=== PATIENT | female | born 1970 | race Caucasian/White ===

== ENCOUNTER 2022-03-13 13:55 | Outpatient (CLI) | payer SELFPAY ==
--- NOTE | 2022-03-13 14:25 | XRR_ITS ---
PROCEDURE INFORMATION: Exam: XR Cervical Spine Exam date and time: 03/13/2022 2:37 PM Age: 51 years old Clinical indication: Neck pain and radicular pain (radiculopathy); Cervical region; Additional info: Chronic neck pain w/radiating symptoms TECHNIQUE: Imaging protocol: Radiologic exam of the cervical spine. Views: 2 or 3 views. COMPARISON: No relevant prior studies available. FINDINGS: Bones/joints: Eknz-gl-xkzkwsgv C5-C6 with moderate to severe C6-C7 degenerative disc disease and spondylosis. Soft tissues: Unremarkable. XR/XR cervical spine 3V* [id number] IMPRESSION: Fwng-wa-zlaqfgiw C5-C6 with moderate to severe C6-C7 degenerative disc disease and spondylosis.
== END 2022-03-13 13:56 | disposition home or self-care (01) ==
PROVIDERS: PCP Family Medicine; Visit Provider Chiropractor
DX: M50.323 Other cervical disc degeneration at C6-C7 level (principal); M47.812 Spondylosis without myelopathy or radiculopathy, cervical region
CPT/HCPCS: 72040

== ENCOUNTER 2022-04-10 14:03 | Outpatient (CLI) | payer BC, SELFPAY ==
--- NOTE | 2022-04-10 14:22 | MM_ITS ---
WS: [id number] BILATERAL 3D TOMOSYNTHESIS DIGITAL DIAGNOSTIC MAMMOGRAPHY WITH CAD CLINICAL INFORMATION: LT BREAST LUMP COMPARISON: None. TECHNIQUE: Bilateral CC, MLO, and ML views. FINDINGS: Scattered fibroglandular densities bilaterally. No suspicious parenchymal abnormalities. Breast tissu e similar to previous. Ultrasound LEFT breast described below ULTRASOUND BREAST LEFT TECHNIQUE: Ultrasound left breast focused area of concern. CLINICAL INFORMATION: LT BREAST LUMP COMPARISON: None. FINDINGS: Ultrasound LEFT breast 4 to 7:00 position. Normal underlying parenchymal tissue. No cystic or solid l esions. No suspicious lesions to target for biopsy. Normal-appearing LEFT axillary lymph node. MM/[place] [id number] IMPRESSION: BI-RADS: 2-Benign FOLLOW UP: 1 Year Follow-up Recommend return to annual screening mammography.
== END 2022-04-10 14:04 | disposition home or self-care (01) ==
LOC: RAD 14:04
PROVIDERS: PCP Family Medicine; Visit Provider Family Medicine
DX: N63.25 Unspecified lump in the left breast, overlapping quadrants (principal)
CPT/HCPCS: 76642; 77062

== ENCOUNTER 2022-09-26 09:54 | Outpatient (CLI) | payer BC, MEDICAID, SELFPAY ==
--- NOTE | 2022-09-26 10:38 | XR_ITS ---
WS: [id number] Abdomen series, Flat and upright 09/26/2022 Clinical Data: INFERIOR VENA CAVA FILTER PRESENT Comparison: None. Findings: No free air is seen beneath the diaphragms. No abnormal intra-abdominal masses or calcifica tions are seen. There is a linear 0.3 cm metal fragment overlying the right side of the L3 vertebral body which may be a strut from the inferior vena caval filter. XR/XR abdomen min 2V [id number] Impression: Possible strut from an inferior vena caval filter overlying L3 vertebral body.
== END 2022-09-26 09:55 | disposition home or self-care (01) ==
PROVIDERS: PCP Family Medicine; Visit Provider Family Medicine
DX: Z95.828 Presence of other vascular implants and grafts (principal)
CPT/HCPCS: 74019

== ENCOUNTER 2022-10-31 00:30 | Inpatient (IN) | payer BC, SELFPAY ==
[2022-10-31] VITALS (14 sets, daily range): BP systolic 119–191; BP diastolic 60–94; PULSE 49–87; RESP 14–22; TEMP 37.1; O2SAT 94–100; BMI 35.9
--- NOTE | 2022-10-31 00:46 | ECG_ITS ---
[facility] Test Date: 2022-10-31 Pat Name: Natacha Reyez Department: Room: Gender: Female Customer Program Manager: : 1970 Requested By: Olayinka Gutierrez Order Number: [id number] Nunu MD: Seamus Tate M.D. Measurements Intervals [place] Rate: 55 P: 67 MS: 146 QRS: 62 QRSD: 97 T: 86 QT: 421 QTc: 405 Interpretive Statements SINUS BRADYCARDIA No previous ECG available for comparison Electronically Signed On 10-31-2022 23:31:51 STEAM PLANT RECORDS CLERK by Seamus Tate M.D. [id number]
--- NOTE | 2022-10-31 00:46 | XRR_ITS ---
PROCEDURE INFORMATION: Exam: XR Chest Exam date and time: 10/31/2022 12:55 AM Age: 52 years old Clinical indication: Shortness of breath; Patient HX: C/O chest discomfort with SOB. ; Additional info: Chest pain TECHNIQUE: Imaging protocol: Radiologic exam of the chest. Views: 1 view. COMPARISON: 1. CR XR abdomen min 2V [id number] 2022-09-26 10:52 2. CR XR cervical spine 3V* [id number] 2022-03-13 14:37 FINDINGS: Lungs: Unremarkable. No consolidation. Pleural spaces: Unremarkable. No pleural effusion. No pneumothorax. Heart/Mediastinum: Unremarkable. No cardiomegaly. Bones/joints: Unremarkable. XR/XR chest 1V portable [id number] IMPRESSION: No acute findings.
--- NOTE | 2022-10-31 00:47 | W.ED.CHESTPA ---
Documented by User: BLADE Cruz 10/31/22 02:58 HPI - Chest Pain General: Chief Complaint: Chest Pain Stated Complaint: sob,cough,chest pain Time Seen by Provider: 10/31/22 00:46 History of Present Illness: 52-year-old female comes in today with complaints of cough and congestion for about 1 week. Tonight she started having some chest discomfort after coughing really hard. Patient appears mildly unwell but not toxic. Patient does have a history of hypertension. Patient's previous history also includes a DVT and pulmonary embolism. Patient otherwise takes only medications for her blood pressure and no other routine medicines. Patient appears nontoxic. Patient's previous PE was called secondary to ankle fracture. Patient reports pain with palpation of the chest wall and deep inspiration. Associated symptoms: Reports fever(s); Deny nausea or vomiting Review of Systems General: Reports: 10 or more systems reviewed and unremarkable except in HPI and below Const: Reports: fever(s) and chills ENMT: Reports: nasal discharge; Denies: throat pain Resp: Reports: non-productive cough and pain on inspiration GI: Denies: nausea, vomiting, diarrhea or constipation : Denies: difficulty voiding Musc: Reports: other (Anterior chest wall pain) Physical Exam Const: COMMON NORMALS: alert HENMT: COMMON NORMALS: normocephalic HEAD & SCALP: normocephalic THROAT: posterior oropharynx normal Neck/C-Spine: COMMON NORMALS: full ROM Chest: CHEST: Yes tenderness (Anterior chest wall) Resp: EFFORT & INSPECTION: Yes able to speak in complete sentences AUSCULTATION: wheezes Cardio: COMMON NORMALS: regular rate and regular rhythm RATE: regular rate RHYTHM: regular rhythm GI: COMMON NORMALS: Soft to palpation AUSCULTATION: Yes normoactive bowel sounds PALPATION: Yes Soft to palpation and No Tenderness to palpation present (GI) Back/Pelvis: COMMON NORMALS: thoracic and lumbar spine normal to inspection Extremity: COMMON NORMALS: no pedal edema Neuro: SENSORIUM/ORIENTATION: Yes alert Skin: COMMON NORMALS: turgor normal GENERAL SKIN EXAM: turgor normal Course Vital Signs: Vital signs: Vital Signs Pulse Rate 72 10/31/22 00:40 Respiratory Rate 18 10/31/22 00:40 Blood Pressure 191/94 10/31/22 00:40 Pulse Oximetry 98 10/31/22 00:40 Oxygen Delivery Me thod 10/31/22 00:40 MDM - Chest Pain Medical Decision Making Patient comes in tonight for complaints of cough and congestion and some chest discomfort starting tonight. Patient reports illness x1 week. Patient reported occasional chills and fever. Patient appears mildly unwell but not toxic. Lungs have some wheezing throughout. Abdomen soft nontender. No edema is noted in the extremities. Skin is warm and dry. Vital signs are normal except for elevated blood pressure. Differential diagnosis includes but not limited to pneumonia, costochondritis, bronchitis, ACS. Lab Data 10/31/22 00:47 10/31/22 00:47 Radiology Impressions Chest X-Ray 10/31/22 00:46 IMPRESSION: No acute findings. Chest CTA 10/31/22 01:28 IMPRESSION: 1. Masslike enlargement of the left kidney, question pyelonephritis, hydronephrosis, or mass. 2. No pulmonary emboli. 3. Mild pulmonary artery enlargement. Mild left cardiac ventricular enlargement. COMMENTS: Consistent with the [place] [employer]'s Incidental Findings Committee white paper (J Am Joesph Radiol 2018): Any incidental renal lesion less than 1 cm or classified as too small to characterize, or any incidental cystic renal lesion characterized as simple-appearing, is likely benign. No follow-up imaging is recommended for these lesions per consensus recommendations based on imaging criteria. Laboratory Results WBC 9.7 10^3/uL (4.0-10.0) 10/31/22 00:47 RBC 4.15 10^6/uL (4.1-5.3) 10/31/22 00:47 Hgb 12.1 g/dL (11.5-15.3) 10/31/22 00:47 Hct 37.8 % (37.0-47.0) 10/31/22 00:47 MCV 91.1 fl (81-99) 10/31/22 00:47 MCH 29.2 pg (28.0-34.0) 10/31/22 00:47 MCHC 32.0 g/dL (30.0-36.0) 10/31/22 00:47 RDW 12.4 % (12.1-15.1) 10/31/22 00:47 Plt Count 350 10^3/cmm (130-400) 10/31/22 00:47 MPV 9.5 fL (7.4-10.4) 10/31/22 00:47 Neut % (Auto) 62.6 % 10/31/22 00:47 Lymph % (Auto) 30.9 % 10/31/22 00:47 Wolfe % (Auto) 4.6 % 10/31/22 00:47 Eos % (Auto) 1.1 % 10/31/22 00:47 Baso % (Auto) 0.5 % 10/31/22 00:47 Neut # (Auto) 6.04 10^3/uL (1.8-7.7) 10/31/22 00:47 Lymph # (Auto) 3.0 10^3/uL (0.8-4.8) 10/31/22 00:47 Wolfe # (Auto) 0.4 10^3/uL (0.2-0.9) 10/31/22 00:47 Eos # (Auto) 0.1 10^3/uL (0.0-0.8) 10/31/22 00:47 Baso # (Auto) 0.1 10^3/uL (0.0-0.1) 10/31/22 00:47 Nucleated RBC % (auto) 0 % 10/31/22 00:47 Nucleated RBCs # 0.0 /100WBC 10/31/22 00:47 D-Dimer 0.63 ug/mIFEU (0-0.59) H 10/31/22 00:47 Sodium 138 mmol/L (136-145) 10/31/22 00:47 Potassium 4.0 mmol/L (3.5-5.1) 10/31/22 00:47 Chloride 102 mmol/L (98-107) 10/31/22 00:47 Carbon Dioxide 24 mmol/L (22-29) 10/31/22 00:47 Anion Gap 16.0 (5-19) 10/31/22 00:47 BUN 19 mg/dL (6-20) 10/31/22 00:47 Creatinine 0.8 mg/dL (0.5-0.9) 10/31/22 00:47 GFR Calculation 75.0 mL/min (90-130) L 10/31/22 00:47 Glucose 111 mg/dL (65-115) 10/31/22 00:47 Calculated Osmolality 289 mOsm/kg (285-295) 10/31/22 00:47 Calcium 9.2 mg/dL (8.5-10.5) 10/31/22 00:47 Total Bilirubin 0.2 mg/dL (0.15-1.2) 10/31/22 00:47 AST 13 U/L (0-32) 10/31/22 00:47 ALT 13 U/L (0-33) 10/31/22 00:47 Alkaline Phosphatase 49 U/L (35-105) 10/31/22 00:47 Troponin T Baseline 27 ng/L (0-10) H 10/31/22 00:47 Troponin T 120 Minute 74.54 ng/L (0-10) H 10/31/22 02:51 Delta Troponin T 47.54 ABS# (0-10) H* 10/31/22 02:51 NT-Pro-B Natriuret Pep 220 pg/mL (0-125) H 10/31/22 00:47 Total Protein 6.8 g/dL (6.6-8.7) 10/31/22 00:47 Albumin 4.2 g/dL (3.5-5.2) 10/31/22 00:47 Globulin 2.6 g/dL (1.3-4.6) 10/31/22 00:47 Lipase 29 U/L (13-60) 10/31/22 00:47 Influenza Type A Ag negative (Negative) 10/31/22 00:54 Influenza Type B Ag negative (Negative) 10/31/22 00:54 SARS-CoV-2 Ag (Rapid) negative (Negative) 10/31/22 00:54 Discharge Plan Discharge Patient Disposition: Admitted As Inpatient Clinical Impression: Non-ST elevation OK (NSTEMI), Bronchitis Condition: Stable Referrals: Marisa Barber DO [Primary Care Provider] - Coding Level of Care Code ED In Flight Technician for Chg Fwd Documented by User: Marco Fleming MD 10/31/22 04:46 HPI - Chest Pain General: Chief Complaint: Chest Pain Stated Complaint: sob,cough,chest pain Time Seen by Provider: 10/31/22 00:46 Course Vital Signs: Vital signs: Vital Signs Pulse Rate 72 10/31/22 00:40 Respiratory Rate 18 10/31/22 00:40 Blood Pressure 191/94 10/31/22 00:40 Pulse Oximetry 98 10/31/22 00:40 Oxygen Delivery Me thod 10/31/22 00:40 MDM - Chest Pain Medical Decision Making Patient comes in tonight for complaints of cough and congestion and some chest discomfort starting tonight. Patient reports illness x1 week. Patient reported occasional chills and fever. Patient appears mildly unwell but not toxic. Lungs have some wheezing throughout. Abdomen soft nontender. No edema is noted in the extremities. Skin is warm and dry. Vital signs are normal except for elevated blood pressure. Differential diagnosis includes but not limited to pneumonia, costochondritis, bronchitis, ACS. Patient presents here with cough congestion she is also had a central chest pain today her 2-hour troponin was elevated consistent with NSTEMI she is currently pain-free EKGs are normal I spoke to the hospitalist and will admit at this time. Lab Data 10/31/22 00:47 10/31/22 00:47 Radiology Impressions Chest X-Ray 10/31/22 00:46 IMPRESSION: No acute findings. Chest CTA 10/31/22 01:28 IMPRESSION: 1. Masslike enlargement of the left kidney, question pyelonephritis, hydronephrosis, or mass. 2. No pulmonary emboli. 3. Mild pulmonary artery enlargement. Mild left cardiac ventricular enlargement. COMMENTS: Consistent with the [place] [employer]'s Incidental Findings Committee white paper (J Am Joesph Radiol 2018): Any incidental renal lesion less than 1 cm or classified as too small to characterize, or any incidental cystic renal lesion characterized as simple-appearing, is likely benign. No follow-up imaging is recommended for these lesions per consensus recommendations based on imaging criteria. Laboratory Results WBC 9.7 10^3/uL (4.0-10.0) 10/31/22 00:47 RBC 4.15 10^6/uL (4.1-5.3) 10/31/22 00:47 Hgb 12.1 g/dL (11.5-15.3) 10/31/22 00:47 Hct 37.8 % (37.0-47.0) 10/31/22 00:47 MCV 91.1 fl (81-99) 10/31/22 00:47 MCH 29.2 pg (28.0-34.0) 10/31/22 00:47 MCHC 32.0 g/dL (30.0-36.0) 10/31/22 00:47 RDW 12.4 % (12.1-15.1) 10/31/22 00:47 Plt Count 350 10^3/cmm (130-400) 10/31/22 00:47 MPV 9.5 fL (7.4-10.4) 10/31/22 00:47 Neut % (Auto) 62.6 % 10/31/22 00:47 Lymph % (Auto) 30.9 % 10/31/22 00:47 Wolfe % (Auto) 4.6 % 10/31/22 00:47 Eos % (Auto) 1.1 % 10/31/22 00:47 Baso % (Auto) 0.5 % 10/31/22 00:47 Neut # (Auto) 6.04 10^3/uL (1.8-7.7) 10/31/22 00:47 Lymph # (Auto) 3.0 10^3/uL (0.8-4.8) 10/31/22 00:47 Wolfe # (Auto) 0.4 10^3/uL (0.2-0.9) 10/31/22 00:47 Eos # (Auto) 0.1 10^3/uL (0.0-0.8) 10/31/22 00:47 Baso # (Auto) 0.1 10^3/uL (0.0-0.1) 10/31/22 00:47 Nucleated RBC % (auto) 0 % 10/31/22 00:47 Nucleated RBCs # 0.0 /100WBC 10/31/22 00:47 D-Dimer 0.63 ug/mIFEU (0-0.59) H 10/31/22 00:47 Sodium 138 mmol/L (136-145) 10/31/22 00:47 Potassium 4.0 mmol/L (3.5-5.1) 10/31/22 00:47 Chloride 102 mmol/L (98-107) 10/31/22 00:47 Carbon Dioxide 24 mmol/L (22-29) 10/31/22 00:47 Anion Gap 16.0 (5-19) 10/31/22 00:47 BUN 19 mg/dL (6-20) 10/31/22 00:47 Creatinine 0.8 mg/dL (0.5-0.9) 10/31/22 00:47 GFR Calculation 75.0 mL/min (90-130) L 10/31/22 00:47 Glucose 111 mg/dL (65-115) 10/31/22 00:47 Calculated Osmolality 289 mOsm/kg (285-295) 10/31/22 00:47 Calcium 9.2 mg/dL (8.5-10.5) 10/31/22 00:47 Total Bilirubin 0.2 mg/dL (0.15-1.2) 10/31/22 00:47 AST 13 U/L (0-32) 10/31/22 00:47 ALT 13 U/L (0-33) 10/31/22 00:47 Alkaline Phosphatase 49 U/L (35-105) 10/31/22 00:47 Troponin T Baseline 27 ng/L (0-10) H 10/31/22 00:47 Troponin T 120 Minute 74.54 ng/L (0-10) H 10/31/22 02:51 Delta Troponin T 47.54 ABS# (0-10) H* 10/31/22 02:51 NT-Pro-B Natriuret Pep 220 pg/mL (0-125) H 10/31/22 00:47 Total Protein 6.8 g/dL (6.6-8.7) 10/31/22 00:47 Albumin 4.2 g/dL (3.5-5.2) 10/31/22 00:47 Globulin 2.6 g/dL (1.3-4.6) 10/31/22 00:47 Lipase 29 U/L (13-60) 10/31/22 00:47 Influenza Type A Ag negative (Negative) 10/31/22 00:54 Influenza Type B Ag negative (Negative) 10/31/22 00:54 SARS-CoV-2 Ag (Rapid) negative (Negative) 10/31/22 00:54 Discharge Plan Discharge Patient Disposition: Admitted As Inpatient Clinical Impression: Non-ST elevation OK (NSTEMI), Bronchitis Condition: Stable Referrals: Marisa Barber DO [Primary Care Provider] - Coding Level of Care Code ED In Flight Technician for Francisco Nicole
[2022-10-31 00:52] LABS: Basophils # 0.1 10^3/uL (0.0-0.1); Basophils % 0.5 %; Eosinophils # 0.1 10^3/uL (0.0-0.8); Eosinophils % 1.1 %; Hematocrit 37.8 % (37.0-47.0); Hemoglobin 12.1 g/dL (11.5-15.3); Lymphocytes % 30.9 %; Mean Corpuscular Hemoglobin 29.2 pg (28.0-34.0); Mean Corpuscular Volume 91.1 fl (81-99); Mean Platelet Volume 9.5 fL (7.4-10.4); Monocytes # 0.4 10^3/uL (0.2-0.9); Monocytes % 4.6 %; Neutrophils # 6.04 10^3/uL (1.8-7.7); Neutrophils % 62.6 %; Nucleated Red Blood Cells % 0 %; Platelet Count 350 10^3/cmm (130-400); Red Blood Count 4.15 10^6/uL (4.1-5.3); Red Cell Distribution Width 12.4 % (12.1-15.1); White Blood Count 9.7 10^3/uL (4.0-10.0)
[2022-10-31] MEDS: dexamethasone 10 mg/mL INJ 6 MG IVP (01:05)
[2022-10-31] MEDS: HYDROcodone-acetaminophen 5-325 mg Tablet 1 TAB PO (01:05)
[2022-10-31 01:08] LABS: D Dimer 0.63 ug/mIFEU (0-0.59)
[2022-10-31 01:12] LABS: Troponin(5th) Baseline 27 ng/L (0-10)
[2022-10-31 01:20] LABS: Alanine Aminotransferase 13 U/L (0-33); Albumin Level 4.2 g/dL (3.5-5.2); Alkaline Phosphatase 49 U/L (35-105); Aspartate Amino Transferase 13 U/L (0-32); Blood Urea Nitrogen 19 mg/dL (6-20); Calcium 9.2 mg/dL (8.5-10.5); Carbon Dioxide 24 mmol/L (22-29); Chloride 102 mmol/L (98-107); Creatinine Clr Calc Pharmacy 81.0795; Globulin 2.6 g/dL (1.3-4.6); Glucose 111 mg/dL (65-115); Lipase 29 U/L (13-60); NT Pro B Type Natriuretic Pept 220 pg/mL (0-125); Osmolality Calculated 289 mOsm/kg (285-295); Sodium 138 mmol/L (136-145); Total Bilirubin 0.2 mg/dL (0.15-1.2); Total Protein 6.8 g/dL (6.6-8.7)
[2022-10-31 01:26] LABS: Influenza A by IFA negative (Negative); Influenza B by IFA negative (Negative); SARS Covid-2 Antigen negative (Negative)
--- NOTE | 2022-10-31 01:28 | CTR_ITS ---
PROCEDURE INFORMATION: Exam: CTA Chest With Contrast Exam date and time: 10/31/2022 1:56 AM Age: 52 years old Clinical indication: Pain and abnormal findings; Abnormal diagnostic tests; Elevated d-dimer; Shortness of breath; Chest pressure; Patient HX: Chest discomfort with SOB. D dimer of 0.63. ; Additional info: Chest pain, elevated d-dimer TECHNIQUE: Imaging protocol: Computed tomographic angiography of the chest with contrast. 3D rendering (Not supervised by radiologist): MIP and/or 3D reconstructed images were created by the technologist. Radiation optimization: All CT scans at this facility use at least one of these dose optimization techniques: automated exposure control; mA and/or kV adjustment per patient size (includes targeted exams where dose is matched to clinical indication); or iterative reconstruction. Contrast material: OMNI 350; Contrast volume: 64 ml; Contrast route: INTRAVENOUS (IV); REPORTING DATA: Count of CT and Cardiac NM exams in prior 12 months: This patient has received 0 known CTs and 0 known cardiac nuclear medicine studies in the 12 months prior to the current study. COMPARISON: 1. CR (CHEST, ) 2022-10-31 00:55 2. CR XR abdomen min 2V [id number] 2022-09-26 10:52 RADIATION DOSE METRICS: Total DLP (mGy-cm): 423.21 FINDINGS: Pulmonary arteries: No pulmonary emboli. Mild pulmonary artery enlargement. Aorta: Unremarkable. No aortic aneurysm. No aortic dissection. Lungs: Unremarkable. No consolidation. No masses. Pleural spaces: Unremarkable. No pneumothorax. No pleural effusion. Heart: Mild left cardiac ventricular enlargement. Lymph nodes: Unremarkable. No enlarged lymph nodes. Kidneys and ureters: Masslike enlargement of the left kidney, question pyelonephritis, hydronephrosis, or mass. Bones/joints: Unremarkable. No acute fracture. Soft tissues: Unremarkable. CT/CT angio chest PE protcl [id number] IMPRESSION: 1. Masslike enlargement of the left kidney, question pyelonephritis, hydronephrosis, or mass. 2. No pulmonary emboli. 3. Mild pulmonary artery enlargement. Mild left cardiac ventricular enlargement. COMMENTS: Consistent with the [place] [employer]'s Incidental Findings Committee white paper (J Am Joesph Radiol 2018): Any incidental renal lesion less than 1 cm or classified as too small to characterize, or any incidental cystic renal lesion characterized as simple-appearing, is likely benign. No follow-up imaging is recommended for these lesions per consensus recommendations based on imaging criteria.
[2022-10-31] MEDS: iohexol 350 mg/mL 500 mL Btl (per mL) IV (02:06)
--- NOTE | 2022-10-31 02:46 | ECG_ITS ---
[facility] Test Date: 2022-10-31 Pat Name: Natacha Reyez Department: Room: Gender: Female Tax Compliance Agent: : 1970 Requested By: Olayinka Gutierrez Order Number: [id number] Nunu MD: Seamus Tate M.D. Measurements Intervals [place] Rate: 62 P: 68 MO: 140 QRS: 66 QRSD: 93 T: 89 QT: 415 QTc: 422 Interpretive Statements SINUS RHYTHM Compared to ECG 10/31/2022 01:01:04 Sinus bradycardia no longer present Electronically Signed On 10-31-2022 23:51:26 AUTOMATION CLERK by Seamus Tate M.D. [email or web address] general hospitalTactileohiohealth dublin methodist hospitalFired Up Christian [employer]/store/OM/[id number]
[2022-10-31 03:27] LABS: Troponin 5 2HR 74.54 ng/L (0-10)
[2022-10-31 03:28] LABS: Troponin 5 2HR Delta 47.54 ABS# (0-10)
[2022-10-31] MEDS: enoxaparin 100 mg/mL Syringe 90 MG SUBCUT (03:51)
[2022-10-31] MEDS: ipratropium-albuterol 3 mL Neb INHALATION (04:53)
[2022-10-31 05:53] LABS: Add Urine Microscopic? NO; Charge for UA Resulting for Rev
[2022-10-31 05:55] LABS: Bilirubin Urine Neg (Negative); Blood Urine Neg (Negative); Glucose Urine UA Norm (Normal); Ketones Urine Negative (Negative); Leukocyte Esterase Urine Negative (Negative); Nitrate Urine Negative (Negative); Protein Urine Neg (Negative); Sulfosalicylic Acid Urine Negative (Negative); Urine Appearance Clear (CLEAR); Urine Color Colorless (Yellow); Urobilinogen Urine Norm (Negative); pH Urine 8 (5-7)
[2022-10-31 06:09] LABS: Troponin 5 6HR 96.66 ng/L (0-10)
[2022-10-31 06:15] LABS: Troponin 5 6HR Delta 69.66 ng/L (0-12)
--- NOTE | 2022-10-31 06:46 | ECG_ITS ---
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 Measurements Intervals [place] Rate: 60 P: 75 NH: 144 QRS: 67 QRSD: 97 T: 90 QT: 439 QTc: 442 Interpretive Statements SINUS RHYTHM Compared to ECG 10/31/2022 02:51:05 No significant changes Electronically Signed On 10-31-2022 23:51:35 COLLEGE PROFESSOR by Seamus Tate M.D. [email or web address] foundation hospitalPeregrine Diamonds/store/[id number]
--- NOTE | 2022-10-31 07:01 | PM.HP ---
Providers/Chief Complaint Admitting Physician: Kristina Dutta MD Primary Care Provider: Marisa Barber DO Chief Complaint: sob,cough,chest pain History of Present Illness Natacha Reyez is a 52 year old female c/o sore thoat cough and dysonea for the last 2 days. She initialy did conservative managment at home. This morning she woke up with crushing substrenal pain radiating to her left chest wall and back. She was concerned about PE therefore presented to ER. She has a h/o extensive DVT and PE in 2016 requiring placement of IVC filter and a/c for 6 months. Filter was attempted to be retrcated in 2019 but remnant still present. CTA here negative for PE however she has had increased troponin with significant delta at 2 and 6 hrs concerning for MN. Incidentally noted left renal bulkiness, possible mass, patient is not aware of having any renal anatomic or functional issues in the past. PMH notable for HTN. no h/o CAD. Review of Systems General: Reports: 10 or more systems reviewed and unremarkable except in HPI and below Const: Denies: fever(s), chills or body aches Eyes: Denies: change in vision, blurry vision or photophobia ENMT: Reports: hoarseness; Denies: throat pain, enlarged tonsils, odynophagia or nasal congestion Card: Denies: chest pain, palpitations, irregular heart rhythm, edema, swelling of feet/ankles, lightheadedness, pre-syncope, dyspnea on exertion or orthopnea Resp: Denies: dyspnea, productive cough, non-productive cough, wheezing, stridor, pain on inspiration, change in phlegm color, hemoptysis or chest congestion GI: Denies: abdominal pain, nausea, vomiting, hematemesis, coffee ground emesis, dysphagia, heartburn, diarrhea, constipation, GI cramping, change in stool character, hematochezia or melena : Denies: flank pain, difficulty voiding, dysuria, urinary frequency, urinary urgency, urinary hesitancy or hematuria Musc: Denies: neck pain, back pain, extremity pain, joint swelling, joint warmth or deformity Neuro: Denies: headache(s), numbness in extremities, weakness in extremities, sensory changes, difficulty walking, frequent falls, dizziness, vertigo, behavioral changes, Slurred speech present or seizure-like activity Psych: Denies: anxiety, depression, suicidal ideation or homicidal ideation Endo: Denies: polyuria, polydipsia, tired all the time, cold intolerance or hot flashes Camilo/Lymph: Denies: easy bruising or easy bleeding Medications/Allergies Home Medications Medication Instructions Recorded Confirmed Last Taken Type amlodipine 10 mg tablet 10 mg PO QAM 10/31/22 10/31/22 Unknown History aspirin 81 mg tablet,delayed 81 mg PO QAM 10/31/22 10/31/22 Unknown History release doxylamin 12.5 mg-PSE 10 mg-DM 20 1 ea PO BID PRN Cold Symptoms 10/31/22 10/31/22 10/30/22 History mg-acetaminophen 650 mg oral pwdr pk ([place] Plus Cold-Flu) losartan 50 mg-hydrochlorothiazide 1 tab PO QAM 10/31/22 10/31/22 Unknown History 12.5 mg tablet Allergies Allergy/AdvReac Type Severity Reaction Status Date / Time No Known Allergies Allergy Verified 10/31/22 07:31 Vitals/I&O/Wt Last Vital Signs Pulse 70 10/31/22 06:01 Resp 16 10/31/22 06:01 BP 139/72 10/31/22 06:01 Pulse Ox 99 10/31/22 06:01 O2 Del Method 10/31/22 06:01 Weight last 48 hrs Weight 86.183 kg Physical Exam Narrative: General: No acute distress, AO x3, hoarse voice HEENT: PERRLA, pupils bilaterally equal and reactive, pallors not present Chest: Normal vesicular breath sounds, no added sounds, equal good air entry bilaterally CVS: S1-S2 regular, no murmurs, no tachycardia, no gallops, no rubs Abdomen: Soft, nontender, no organomegaly, bowel sounds present Neuro: No focal deficits, no facial deformity, AO x3, power 5/5 in all limbs Data 10/31/22 00:47 10/31/22 00:47 Other Labs: Radiology Impressions Chest X-Ray 10/31/22 00:46 IMPRESSION: No acute findings. Chest CTA 10/31/22 01:28 IMPRESSION: 1. Masslike enlargement of the left kidney, question pyelonephritis, hydronephrosis, or mass. 2. No pulmonary emboli. 3. Mild pulmonary artery enlargement. Mild left cardiac ventricular enlargement. COMMENTS: Consistent with the [employer]'s Incidental Findings Committee white paper (J Am Joesph Radiol 2018): Any incidental renal lesion less than 1 cm or classified as too small to characterize, or any incidental cystic renal lesion characterized as simple-appearing, is likely benign. No follow-up imaging is recommended for these lesions per consensus recommendations based on imaging criteria. Laboratory Results WBC 9.7 10^3/uL (4.0-10.0) 10/31/22 00:47 RBC 4.15 10^6/uL (4.1-5.3) 10/31/22 00:47 Hgb 12.1 g/dL (11.5-15.3) 10/31/22 00:47 Hct 37.8 % (37.0-47.0) 10/31/22 00:47 MCV 91.1 fl (81-99) 10/31/22 00:47 MCH 29.2 pg (28.0-34.0) 10/31/22 00:47 MCHC 32.0 g/dL (30.0-36.0) 10/31/22 00:47 RDW 12.4 % (12.1-15.1) 10/31/22 00:47 Plt Count 350 10^3/cmm (130-400) 10/31/22 00:47 MPV 9.5 fL (7.4-10.4) 10/31/22 00:47 Neut % (Auto) 62.6 % 10/31/22 00:47 Lymph % (Auto) 30.9 % 10/31/22 00:47 [place] % (Auto) 4.6 % 10/31/22 00:47 Eos % (Auto) 1.1 % 10/31/22 00:47 Baso % (Auto) 0.5 % 10/31/22 00:47 Neut # (Auto) 6.04 10^3/uL (1.8-7.7) 10/31/22 00:47 Lymph # (Auto) 3.0 10^3/uL (0.8-4.8) 10/31/22 00:47 [place] # (Auto) 0.4 10^3/uL (0.2-0.9) 10/31/22 00:47 Eos # (Auto) 0.1 10^3/uL (0.0-0.8) 10/31/22 00:47 Baso # (Auto) 0.1 10^3/uL (0.0-0.1) 10/31/22 00:47 Nucleated RBC % (auto) 0 % 10/31/22 00:47 Nucleated RBCs # 0.0 /100WBC 10/31/22 00:47 D-Dimer 0.63 ug/mIFEU (0-0.59) H 10/31/22 00:47 Sodium 138 mmol/L (136-145) 10/31/22 00:47 Potassium 4.0 mmol/L (3.5-5.1) 10/31/22 00:47 Chloride 102 mmol/L (98-107) 10/31/22 00:47 Carbon Dioxide 24 mmol/L (22-29) 10/31/22 00:47 Anion Gap 16.0 (5-19) 10/31/22 00:47 BUN 19 mg/dL (6-20) 10/31/22 00:47 Creatinine 0.8 mg/dL (0.5-0.9) 10/31/22 00:47 GFR Calculation 75.0 mL/min (90-130) L 10/31/22 00:47 Glucose 111 mg/dL (65-115) 10/31/22 00:47 Calculated Osmolality 289 mOsm/kg (285-295) 10/31/22 00:47 Calcium 9.2 mg/dL (8.5-10.5) 10/31/22 00:47 Total Bilirubin 0.2 mg/dL (0.15-1.2) 10/31/22 00:47 AST 13 U/L (0-32) 10/31/22 00:47 ALT 13 U/L (0-33) 10/31/22 00:47 Alkaline Phosphatase 49 U/L (35-105) 10/31/22 00:47 Troponin T Baseline 27 ng/L (0-10) H 10/31/22 00:47 Troponin T 120 Minute 74.54 ng/L (0-10) H 10/31/22 02:51 Delta Troponin T 47.54 ABS# (0-10) H* 10/31/22 02:51 Troponin T Hi Sens 6Hr 96.66 ng/L (0-10) H 10/31/22 05:42 Troponin T Hi Sens 6Hr Delta 69.66 ng/L (0-12) H* 10/31/22 05:42 NT-Pro-B Natriuret Pep 220 pg/mL (0-125) H 10/31/22 00:47 Total Protein 6.8 g/dL (6.6-8.7) 10/31/22 00:47 Albumin 4.2 g/dL (3.5-5.2) 10/31/22 00:47 Globulin 2.6 g/dL (1.3-4.6) 10/31/22 00:47 Lipase 29 U/L (13-60) 10/31/22 00:47 Urine Color Colorless (Yellow) 10/31/22 05:51 Urine Appearance Clear (CLEAR) 10/31/22 05:51 Urine pH 8 (5-7) H 10/31/22 05:51 Ur Specific [place] 1.010 (1.005-1.030) 10/31/22 05:51 Urine Protein Neg (Negative) 10/31/22 05:51 Urine Glucose (UA) Norm (Normal) 10/31/22 05:51 Urine Ketones Negative (Negative) 10/31/22 05:51 Urine Blood Neg (Negative) 10/31/22 05:51 Urine Nitrate Negative (Negative) 10/31/22 05:51 Urine Bilirubin Neg (Negative) 10/31/22 05:51 Prot Sulfosalicylic Acd Negative (Negative) 10/31/22 05:51 Urine Urobilinogen Norm mg/dL (Negative) 10/31/22 05:51 Ur Leukocyte Esterase Negative (Negative) 10/31/22 05:51 Influenza Type A Ag negative (Negative) 10/31/22 00:54 Influenza Type B Ag negative (Negative) 10/31/22 00:54 SARS-CoV-2 Ag (Rapid) negative (Negative) 10/31/22 00:54 A&P Assessment and plan (1) Non-ST elevation MN (NSTEMI): Patient presenting with chest pain that started this am in jean carlos setting of being sick with likely viral URI vs bronchitis over the past 2-3 days EKG without acute st-t changes Trop with increasing delta at 2 and 6 hrs concern for nstemi start lovenox 1mg/kg s/c every 12 hrs ASA 81mg daily ,atorvastatin screen with lipid panel and hba1c echocardiogram cardiology consult npo until cardiology assessment (2) History of pulmonary embolism: CTA currently negative for PE has partially extracted IVC filter noted on CT imaging Plan Incidentally noted left renal mass: N0 clinical corelate for UTI or pyelonpehritis. UA unremarkablae, no bleeding. Monitor for hematuria with bleeding. Unknown chronicity of mass. WIll need further evaluation once acute cardiac issues have been addressed. Likely viral URI with sore throat, cough. Afberile currently. Negative COVID and flu ag . No leukocytosis. No pneumonia on chest imaging. Supportive treatment for now Attestations Medical Necessity Statement*: > 2 midnight stay is anticipated Coding Level of Care Code Acute Code for Chg Fwd High MDM includes number and complexity of problems actively addressed during encounter, amount and/or complexity of data reviewed/ordered and described risk of complication, morbidity or mortality of management as documented Diagnoses Non-ST elevation MN (NSTEMI) I21.4 History of pulmonary embolism Z86.711
--- NOTE | 2022-10-31 07:09 | USCV_ITS ---
Natacha Reyez Age: 52 Gender: F : 1970 Exam Date: 10/31/2022 08:34 Ordering Phys: Kristina Dutta MD Technologist: Nelson Dillon [place] [facility] [place]stemi BP: 138 / 65 HR: 67 Rhythm: Sinus Technical Quality: Adequate MEASUREMENTS (Male / Female) Normal Values 2D ECHO LV Diastolic Diameter PLAX 4.5 cm 4.2 - 5.9 / 3.9 - 5.3 cm LV Systolic Diameter PLAX 3.0 cm IVS Diastolic Thickness 1.2 cm 0.6 - 1.0 / 0.6 - 0.9 cm IVS Systolic Thickness 1.6 cm LVPW Diastolic Thickness 1.2 cm 0.6 - 1.0 / 0.6 - 0.9 cm LVPW Systolic Thickness 1.4 cm LVOT Diameter 2.1 cm LV Ejection Fraction 2D Teich 62.3 % LV Ejection Fraction MOD 2C 47.6 % LV Ejection Fraction 2C AL 46.4 % LA Diameter 4.0 cm IVC Diameter 1.3 cm M-MODE Aortic Annulus Diameter 3.6 cm LA Ao Ratio MM 1.2 MV E Point Septal Separation 0.8 cm DOPPLER AV Peak Velocity 111.0 cm/s LVOT Peak Velocity 93.0 cm/s AV Area Cont Eq vti 3.2 cm squared AV Area Cont Eq pk 2.8 cm squared MV Area PHT 2.8 cm squared Mitral E to A Ratio 0.7 MV E' Velocity 64.0 cm/s TR Peak Velocity 153.0 cm/s TR Peak Gradient 9.4 mmHg TV Peak E Velocity 73.0 cm/s Right Atrial Pressure 3.0 mmHg Pulmonary Artery Systolic Pressu 12.4 mmHg RV Acceleration Time 0.1 s FINDINGS Left Ventricle Normal LV size ejection fraction of 50 to 55%. Mild hypokinesia of the inferolateral wall segment.Grade I/IV diastolic dysfunction (abnormal relaxation filling pattern), normal to mildly elevated filling pressures. Right Ventricle The right ventricle is normal in size and function. Right Atrium The right atrium is normal in size. Left Atrium The left atrium is normal in size. Mitral Valve Trace mitral valve regurgitation. Aortic Valve Thickened aortic valve. Tricuspid Valve No gross abnormalities noted Pulmonic Valve No gross abnormalities noted Pericardium Normal pericardium without effusion. Aorta Normal ascending aorta dimension. IVC Normal inferior vena cava. CONCLUSIONS Normal LV size ejection fraction of 50 to 55%. Mild hypokinesia of the inferolateral wall segment.Grade I/IV diastolic dysfunction (abnormal relaxation filling pattern), normal to mildly elevated filling pressures. Trace mitral valve regurgitation. There is no pericardial effusion. There are no intracardiac masses. No similar previous studies are available for comparison Dr Seamus Tate MD [facility] (Electronically Signed) Final Date: 31 October 2022 14:17 S
[2022-10-31] MEDS: atorvastatin 40 mg Tablet PO (07:54)
--- NOTE | 2022-10-31 08:24 | P.CONIM_ITS ---
Providers/Reason For Consult Consulting Physician/Specialty*: DR FLAVIO Tate/Cardiology Reason for Consult*: Pt with chest pain and elevated Troponin T Requesting Physician: Dr Dutta Attending Physician: Tristan Marin MD Primary Care Provider: Marisa Barber DO History of Present Illness History of Present Illness Natacha Reyez is a 52 year old female with a history of hypertension, is presenting with complaints of chest pain since 1230 this morning. She was found to have elevated troponin T. Cardiology consult is requested for further cardiac evaluation recommendations. This patient apparently has been having upper respiratory infection symptoms for the last 5 days or so. She was having hoarseness of voice and a cough. Also might have had a low-grade fever in the beginning. Her cough been productive for the last 3 days or so. Her cough becomes incessant at times. Around 1230 this morning, she started having a squeezing pressure-like pain in the lower substernal region. The pain was radiating to the back. She had some shortness of breath with it. She waited for 45 minutes or so at home. Since there was no relief of symptoms, she decided to drive to the emergency room. Apparently she lives alone. She did not have any associated nausea or vomiting. The intensity of the pain was 8/10. No other associated symptoms or radiation of pain. Her initial troponin T was 27 with a 2-hour delta of 47 and 6-hour delta of 69. He has no history for smoking abuse , alcohol abuse or any substance abuse. No significant family history for premature atherosclerotic heart disease. In 2015, she had a massive pulmonary embolism-? Saddle embolus. She was treated with IV heparin? And also an IVC filter. Apparently prior to this event she had sprain of the right ankle Her history suggesting a DVT followed by distal embolization. Her IVC filter was retrieved in 2019. According the patient,part of the filter was dislodged and ended up in her spine . She has been having yearly examination to follow-up on this. Apparently she has no complication with this. Review of Systems Narrative: CONSTITUTIONAL: No fever or chills. EYES: No blurring of vision or other visual disturbances lately. ENT: No hoarseness of voice, auditory disturbances or sore throat. CARDIOVASCULAR: As mentioned above. RESPIRATORY: Upper respiratory infection symptoms as mentioned above for the last 5-day GASTROINTESTINAL: No hematemesis or melena. GENITOURINARY: No dysuria or hematuria. INTEGUMENTARY: No skin rashes or history of skin cancer. NEURO: No transient ischemic attacks or amaurosis. PSYCHIATRIC: No history of psychosis or major depression. HEMATOLOGIC: No bleeding disorders or significant anemia. ENDOCRINE: No history of polyuria or polydipsia. MUSCULOSKELETAL: No recent joint pain or swelling. ALLERGY/IMMUNOLOGY: As mentioned above. Medications/Allergies Home Medications Medication Instructions Recorded Confirmed Last Taken Type amlodipine 10 mg tablet 10 mg PO QAM 10/31/22 10/31/22 Unknown History aspirin 81 mg tablet,delayed 81 mg PO QAM 10/31/22 10/31/22 Unknown History release doxylamin 12.5 mg-PSE 10 mg-DM 20 1 ea PO BID PRN Cold Symptoms 10/31/22 10/31/22 10/30/22 History mg-acetaminophen 650 mg oral pwdr pk ([place] Plus Cold-Flu) losartan 50 mg-hydrochlorothiazide 1 tab PO QAM 10/31/22 10/31/22 Unknown History 12.5 mg tablet Allergies Allergy/AdvReac Type Severity Reaction Status Date / Time No Known Allergies Allergy Verified 10/31/22 07:31 Current Medications Generic Name Dose Route Start Last Admin Trade Name Freq PRN Reason Stop Dose Admin Atorvastatin Calcium 40 mg 10/31/22 07:30 10/31/22 07:54 Atorvastatin 40 Mg Tablet PO 40 mg BEDTIME CHARLIE Administration Vitals/I&O/Wt Last Vital Signs Pulse 86 10/31/22 08:00 Resp 15 10/31/22 08:00 BP 136/65 10/31/22 08:00 Pulse Ox 94 10/31/22 08:00 O2 Del Method 10/31/22 08:00 Weight last 48 hrs Weight 190 lb Physical Exam Narrative: GENERAL: The patient is alert and oriented times three. Not in any acute distress. HEENT: No significant pallor, icterus or lymphadenopathy.Oral cavity: There are no mucous membrane lesions. NECK: Trachea appears to be central. No masses noted. No JVD or thyromegaly appreciated. RESPIRATORY: Chest is symmetrical. No intercostals muscle retraction or any accessory muscle activation. There is no chest wall tenderness. Breath sounds are heard bilaterally. No rales or rhonchi heard. No evidence of any consolidation. BREASTS: Deferred. HEART: The heart sounds are normal. No S3 or S4. No significant murmurs. No pericardial rub ABDOMEN: No vessel pulsations or distention. No tenderness. No organomegaly appreciated. Bowel sounds are normally heard. : Deferred. RECTAL: Deferred. LYMPHATIC: No lymphadenopathy noted in the neck. EXTREMITIES: No edema or cyanosis. No clubbing. MUSCULOSKELETAL: No acute joint deformities or swelling SKIN: There are no significant rashes or ecchymosis NEUROPSYCHIATRIC: The patient is alert and oriented x3. Appears to be in a good mood. No tremors or rigidity noted. Data 10/31/22 00:47 10/31/22 00:47 Other Labs: Laboratory Last Values WBC 9.7 10^3/uL (4.0-10.0) 10/31/22 00:47 RBC 4.15 10^6/uL (4.1-5.3) 10/31/22 00:47 Hgb 12.1 g/dL (11.5-15.3) 10/31/22 00:47 Hct 37.8 % (37.0-47.0) 10/31/22 00:47 MCV 91.1 fl (81-99) 10/31/22 00:47 MCH 29.2 pg (28.0-34.0) 10/31/22 00:47 MCHC 32.0 g/dL (30.0-36.0) 10/31/22 00:47 RDW 12.4 % (12.1-15.1) 10/31/22 00:47 Plt Count 350 10^3/cmm (130-400) 10/31/22 00:47 MPV 9.5 fL (7.4-10.4) 10/31/22 00:47 Neut % (Auto) 62.6 % 10/31/22 00:47 Lymph % (Auto) 30.9 % 10/31/22 00:47 [place] % (Auto) 4.6 % 10/31/22 00:47 Eos % (Auto) 1.1 % 10/31/22 00:47 Baso % (Auto) 0.5 % 10/31/22 00:47 Neut # (Auto) 6.04 10^3/uL (1.8-7.7) 10/31/22 00:47 Lymph # (Auto) 3.0 10^3/uL (0.8-4.8) 10/31/22 00:47 [place] # (Auto) 0.4 10^3/uL (0.2-0.9) 10/31/22 00:47 Eos # (Auto) 0.1 10^3/uL (0.0-0.8) 10/31/22 00:47 Baso # (Auto) 0.1 10^3/uL (0.0-0.1) 10/31/22 00:47 Nucleated RBC % (auto) 0 % 10/31/22 00:47 Nucleated RBCs # 0.0 /100WBC 10/31/22 00:47 D-Dimer 0.63 ug/mIFEU (0-0.59) H 10/31/22 00:47 Sodium 138 mmol/L (136-145) 10/31/22 00:47 Potassium 4.0 mmol/L (3.5-5.1) 10/31/22 00:47 Chloride 102 mmol/L (98-107) 10/31/22 00:47 Carbon Dioxide 24 mmol/L (22-29) 10/31/22 00:47 Anion Gap 16.0 (5-19) 10/31/22 00:47 BUN 19 mg/dL (6-20) 10/31/22 00:47 Creatinine 0.8 mg/dL (0.5-0.9) 10/31/22 00:47 GFR Calculation 75.0 mL/min (90-130) L 10/31/22 00:47 Glucose 111 mg/dL (65-115) 10/31/22 00:47 Calculated Osmolality 289 mOsm/kg (285-295) 10/31/22 00:47 Calcium 9.2 mg/dL (8.5-10.5) 10/31/22 00:47 Total Bilirubin 0.2 mg/dL (0.15-1.2) 10/31/22 00:47 AST 13 U/L (0-32) 10/31/22 00:47 ALT 13 U/L (0-33) 10/31/22 00:47 Alkaline Phosphatase 49 U/L (35-105) 10/31/22 00:47 Troponin T Baseline 27 ng/L (0-10) H 10/31/22 00:47 Troponin T 120 Minute 74.54 ng/L (0-10) H 10/31/22 02:51 Delta Troponin T 47.54 ABS# (0-10) H* 10/31/22 02:51 Troponin T Hi Sens 6Hr 96.66 ng/L (0-10) H 10/31/22 05:42 Troponin T Hi Sens 6Hr Delta 69.66 ng/L (0-12) H* 10/31/22 05:42 NT-Pro-B Natriuret Pep 220 pg/mL (0-125) H 10/31/22 00:47 Total Protein 6.8 g/dL (6.6-8.7) 10/31/22 00:47 Albumin 4.2 g/dL (3.5-5.2) 10/31/22 00:47 Globulin 2.6 g/dL (1.3-4.6) 10/31/22 00:47 Lipase 29 U/L (13-60) 10/31/22 00:47 Urine Color Colorless (Yellow) 10/31/22 05:51 Urine Appearance Clear (CLEAR) 10/31/22 05:51 Urine pH 8 (5-7) H 10/31/22 05:51 Ur Specific [place] 1.010 (1.005-1.030) 10/31/22 05:51 Urine Protein Neg (Negative) 10/31/22 05:51 Urine Glucose (UA) Norm (Normal) 10/31/22 05:51 Urine Ketones Negative (Negative) 10/31/22 05:51 Urine Blood Neg (Negative) 10/31/22 05:51 Urine Nitrate Negative (Negative) 10/31/22 05:51 Urine Bilirubin Neg (Negative) 10/31/22 05:51 Prot Sulfosalicylic Acd Negative (Negative) 10/31/22 05:51 Urine Urobilinogen Norm mg/dL (Negative) 10/31/22 05:51 Ur Leukocyte Esterase Negative (Negative) 10/31/22 05:51 Influenza Type A Ag negative (Negative) 10/31/22 00:54 Influenza Type B Ag negative (Negative) 10/31/22 00:54 SARS-CoV-2 Ag (Rapid) negative (Negative) 10/31/22 00:54 CTA Chest: Radiologist's impression: 1. ? Masslike enlargement of the left kidney, question pyelonephritis, hydronephrosis, or mass. 2. ? No pulmonary emboli. 3. ? Mild pulmonary artery enlargement. Mild left cardiac ventricular enlargement. CXR: My impression: Mild cardiomegaly. No lung infiltrate. No acute pathology noted EKG 1: My Interpretation: Normal sinus rhythm with a heart rate of 60 bpm. Some nonspecific T wave changes in the high lateral leads. Otherwise unremarkable A&P Assessment and plan (1) Non-ST elevation [place] (NSTEMI): Clinical features are suggestive of an acute coronary [id number] elevation myocardial infarction. Her EKG changes are nonspecific. For further evaluation of her symptoms, an echocardiogram would be helpful. She may be treated with a subcu Lovenox, aspirin, Plavix, low-dose of beta-ian, nitrates and statin. Her lipid profile in the thyroid profile would be appropriate (2) Benign essential hypertension with target blood pressure below 140/90: Her blood pressure needs to be closely monitored. Currently the blood pressure stage I. (3) Bronchitis: Treatment as per the primary attending. (4) History of pulmonary embolism: Patient had IVC filter placement and DVT of the right lower extremity. She has not had any recurrence since 2016. She was on oral anticoagulation for 6 months or so and then was discontinued. Currently she seems to have no specific symptoms. Plan After reviewing the above test results, further recommendations will be made. Patient may benefit from a cardiac catheterization, which will be decided after reviewing the above. Plavix 300 mg p.o. now followed by 75 mg p.o. daily. Metoprolol 25 mg p.o. twi ce daily. Check the lipid profile and thyroid profile. Nitropaste half inch to the anterior chest wall. Based on the patient's the clinical progress, further recommendations will be made. Thank you for the opportunity to evaluate this patient and make these recommendations Consult Attestations Medical Necessity Statement: Patient requires continued hospital stay for close monitoring and further management Coding Level of Care Code Acute Code for Chg Fwd Diagnoses Non-ST elevation [place] (NSTEMI) I21.4 Benign essential hypertension with target blood pressure below 140/90 I10 Bronchitis J40 History of pulmonary embolism Z86.711
[2022-10-31] MEDS: aspirin 81 mg EC Tablet PO (09:06)
[2022-10-31] MEDS: pantoprazole DR 40 mg Tablet PO (09:06)
[2022-10-31] MEDS: clopidogrel 300 mg Tablet PO (09:25)
[2022-10-31 09:55] LABS: Chol HDL Ratio 4.08 mg/dL (0.0-4.40); Cholesterol 196 mg/dL (0-200); HDL Cholesterol 48 mg/dL (60-100); LDL Cholesterol Calculated 122 mg/dL (50-129); LDL HDL Ratio 2.54 RATIO (0.00-3.22); Thyroid Stimulating Hormone 6.83 uIU/mL (0.27-4.20); Triglycerides 132 mg/dL (0-150)
--- NOTE | 2022-10-31 11:27 | PM.MISC ---
Miscellaneous Note Note: Patient is chest pain-free Dr. Chen recommended coronary angiogram Bilaterally Currently chest pain free Awake and alert Hemodynamically stable GCS 15 Currently on room air Plan for angiogram after reviewing echo D-dimer unremarkable Currently chest pain-free Plan for coronary angiogram once we have echo report We will keep n.p.o. after midnight She can have diet today Masslike enlargement of left kidney questionable pyonephritis versus hydronephrosis versus mass
--- NOTE | 2022-10-31 12:55 | PC.NURSE ---
JOSUE Betancur took over care at 1256 from JOSUE Dickinson
[2022-10-31] MEDS: enoxaparin 80 mg/0.8 mL Syringe SUBCUT (17:03)
[2022-10-31] MEDS: metoprolol tartrate 25 mg Tablet 12.5 MG PO (18:08)
[2022-11-01] VITALS (12 sets, daily range): BP systolic 128–165; BP diastolic 73–101; PULSE 50–75; RESP 16–23; TEMP 36.6–37.3; O2SAT 96–100
[2022-11-01] MEDS: enoxaparin 80 mg/0.8 mL Syringe SUBCUT (03:43)
[2022-11-01 06:18] LABS: Basophils % 0.3 %; Eosinophils % 0.1 %; Lymphocytes # 3.4 10^3/uL (0.8-4.8); Mean Corpuscular HGB Conc 30.6 g/dL (30.0-36.0); Mean Corpuscular Hemoglobin 29.3 pg (28.0-34.0); Mean Corpuscular Volume 95.7 fl (81-99); Mean Platelet Volume 9.7 fL (7.4-10.4); Monocytes # 0.8 10^3/uL (0.2-0.9); Monocytes % 5.7 %; Neutrophils # 9.26 10^3/uL (1.8-7.7); Neutrophils % 68.6 %; Nucleated Red Blood Cells % 0 %; Platelet Count 342 10^3/cmm (130-400); Red Blood Count 3.76 10^6/uL (4.1-5.3); Red Cell Distribution Width 12.8 % (12.1-15.1); White Blood Count 13.5 10^3/uL (4.0-10.0)
[2022-11-01 06:30] LABS: Estmated Average Glucose 111; Hemoglobin A1C 5.5 % (4.0-6.0)
[2022-11-01 06:39] LABS: Troponin T (5th) Once 36 ng/L (0-10)
[2022-11-01 06:41] LABS: Alanine Aminotransferase 11 U/L (0-33); Albumin Level 3.7 g/dL (3.5-5.2); Alkaline Phosphatase 42 U/L (35-105); Anion Gap 15.1 (5-19); Aspartate Amino Transferase 13 U/L (0-32); Blood Urea Nitrogen 16 mg/dL (6-20); Calcium 8.9 mg/dL (8.5-10.5); Carbon Dioxide 22 mmol/L (22-29); Chloride 102 mmol/L (98-107); Creatinine Clr Calc Pharmacy 92.6623; Globulin 2.8 g/dL (1.3-4.6); Glomerular Filtration Rate 87.5 mL/min (90-130); Glucose 102 mg/dL (65-115); Osmolality Calculated 281 mOsm/kg (285-295); Potassium 4.1 mmol/L (3.5-5.1); Sodium 135 mmol/L (136-145); Total Bilirubin 0.2 mg/dL (0.15-1.2); Total Protein 6.5 g/dL (6.6-8.7)
--- NOTE | 2022-11-01 06:52 | P.PN_ITS ---
Subjective Subjective: Patient doing well No active chest pain Patient was told about her left kidney mass She will need outpatient follow-up for that Currently hemodynamically stable Awaiting for angiogram Possibility for sleep apnea, overnight bradycardia noted Vitals/I&O/Wt Last Vital Signs Temp 97.9 F 11/01/22 04:00 Pulse 50 L 11/01/22 04:59 Resp 19 H 11/01/22 04:00 BP 148/73 11/01/22 04:00 Pulse Ox 98 11/01/22 04:00 O2 Del Method 11/01/22 04:00 10/31/22 10/31/22 11/01/22 14:59 22:59 06:59 Intake Total 480 / 480 0 / 480 Output Total 0 / 0 Balance 480 / 480 0 / 480 Weight last 48 hrs Weight 86.183 kg Physical Exam Narrative: Awake and alert Euvolemic Chest repeat Hemodynamically stable Pleasant and cooperative Abdomen soft No audible stridor or wheezing Data 11/01/22 06:10 11/01/22 06:10 A&P Assessment and plan (1) History of pulmonary embolism: (2) Benign essential hypertension with target blood pressure below 140/90: (3) Bronchitis: (4) Non-ST elevation [place] (NSTEMI): Plan Unstable angina Echo unremarkable Going for angiogram today CTA ruled out PE Left renal mass: Routine outpatient follow-up Hemodynamically stable Rule out sleep apnea we will do overnight pulse ox study N.p.o. for now She can have cardiac diet afterwards Plan to discharge later today versus tomorrow morning Hypertension: She add lisinopril to amlodipine DVT prophylaxis on board Full code Attestations Medical Necessity Statement*: Angiogram today Diagnoses History of pulmonary embolism Z86.711 Benign essential hypertension with target blood pressure below 140/90 I10 Bronchitis J40 Non-ST elevation [place] (NSTEMI) I21.4
[2022-11-01] MEDS: pantoprazole DR 40 mg Tablet PO (07:50)
[2022-11-01] MEDS: aspirin 81 mg EC Tablet PO (07:51)
[2022-11-01] MEDS: lisinopril 10 mg Tablet PO (07:51)
--- NOTE | 2022-11-01 08:10 | CT_ITS ---
WS: [id number] CT ABDOMEN PELVIS TECHNIQUE: Noncontrast CT of the abdomen and pelvis with coronal and sagittal reformatted images. CLINICAL INFORMATION: kidney mass COMPARISON: CTA October 31, 2022 DLP: 785.[address] scans at [facility] use at least one of these dose optimization techniques: automated e xposure control; mA and/or kV adjustment per patient size (includes targeted exams where dose is matc hed to clinical indication); or iterative reconstruction. FINDINGS: Lung bases are well aerated. Noncontrast liver is normal. Normal GE junction. Normal gallbladder. Non contrast spleen is normal. Adrenal glands are normal. Normal caliber abdominal aorta. Noncontrast anguiano creas appears normal. Normal sigmoid colon. RIGHT ovarian cyst measuring 2.9 x 2.1 CM. No free fluid in the cul-de-sac. Bilateral renal cortical atrophy with dilatation of the renal collecting system bilaterally with luciano pelvic renal cysts. Both ureters are decompressed. No obstructing renal or ureter calculi. Exam is so mewhat limited without contrast. This can be followed up with ultrasound or contrast-enhanced CT abdo men pelvis. Disc narrowing worse L5-S1 with endplate sclerosis. CT/CT abdomen pelvis wo con [id number] IMPRESSION: 1. Bilateral renal cortical atrophy with dilatation of the renal collecting sy stem bilaterally. Moderate LEFT and mild RIGHT chronic appearing hydronephrosis with superimposed peripelvic renal cysts. 2. No evidence of obstructing renal or ureteral calculi. Both ureters are norm al. Evaluation is somewhat limited without contrast. 3. RIGHT ovarian low-attenuation lesion 2.9 x 2.0 cm likely ovarian cyst. 4. No other acute findings.
[2022-11-01 09:20] LABS: Thyroid Stimulating Hormone 3.17 uIU/mL (0.27-4.20)
--- NOTE | 2022-11-01 10:09 | PC.CHAP ---
Pastoral Care Encounter/Spiritual Assessment Type of Contact [] Declined bulb grader visit [] Patient/Family/Request visit [] Outpatient visit [] Follow-up visit [] Physician referral [] Code/Alert [x] Routine visit [] Staff referral [] Actively dying [] Patient sleeping [] Family support [] [] Out of room [] Palliative care [] [] Receiving care in room [] Pre-surgical visit [] Trauma [] Long length of stay [] ICU visit [] Other: Relational/Emotional Strength [] Patient feels connected with others/family/visitors/staff [] Distress [] Loneliness/isolation [] Abandonment Spirituality of Patient [x] Person of Rajwinder [] Attends Moravian of their Rajwinder [x] Believes in Prayer [] Reads Bible or Catholic materials [] There are Spiritual issues to be addressed Mill Controller Interventions [x] Prayer [] Active listening [] Non-anxious presence [] Spiritual/emotional support [] Crisis/trauma care [] Spiritual counseling [] Bereavement support [] Provided bereavement packet [] Provided Bible/devotional materials [] Provided toy/stuffed animal, coloring book to patient or family member [] Provided Communion [] Anointing/[place] [] Salvation [x] Completed spiritual assessment [] Other: Impact on Illness or Injury [] Angry [] Fearful [] Anxious [] Often cries [] Exhaustion [] Unable to work [] Unable to attend restorationism [] Unable to walk/stand [] Unable to read [] Unable to drive [] Unable to eat/drink [] Unable to sleep [] Unable to be with family [] Patient intubated [] Other: Summary Time spent with patient 5min
[2022-11-01 10:45] LABS: Basophils % 0.2 %; Eosinophils % 0.3 %; Hematocrit 37.5 % (37.0-47.0); Lymphocytes # 4.1 10^3/uL (0.8-4.8); Lymphocytes % 32.7 %; Mean Corpuscular Hemoglobin 29.3 pg (28.0-34.0); Mean Corpuscular Volume 91.7 fl (81-99); Mean Platelet Volume 9.6 fL (7.4-10.4); Monocytes # 0.6 10^3/uL (0.2-0.9); Monocytes % 4.7 %; Neutrophils # 7.67 10^3/uL (1.8-7.7); Neutrophils % 61.7 %; Nucleated Red Blood Cells % 0 %; Platelet Count 337 10^3/cmm (130-400); Red Blood Count 4.09 10^6/uL (4.1-5.3); Red Cell Distribution Width 12.8 % (12.1-15.1); White Blood Count 12.5 10^3/uL (4.0-10.0)
--- NOTE | 2022-11-01 12:09 | XACV_ITS ---
Exam Room: [facility] Ht: 155 cm Wt: 86 kg BSA: 1.97 m2 Gender: Female : 1970 Exam Priority: Routine Procedure(s): Procedure Description: Diagnostic procedure Procedure Description: Left Heart Catheterization Procedure Description: Left ventriculography Procedure Description: Coronary Angiography Bebeto MANUEL; Diagnostic Cath Status: Urgent Diagnostic Findings * The left main is a medium caliber short vessel with no significant stenotic lesions. * Left-sided descending artery is a medium caliber vessel which is highly tortuous and was found to be wrapping around the LV apex minimally. No significant stenotic lesions were noted. * The left circumflex artery is a medium caliber vessel which gives off a large obtuse marginal branch with no significant lesions. The circumflex proper in the AV groove was found to be rudimentary with mild diffuse disease. * The right coronary artery is a medium caliber dominant vessel with no significant stenotic lesions. Conclusions 1. 52-year-old white female, presented with features of acute non-ST elevation myocardial infarction. Cardiac catheterization revealing no significant obstructive coronary artery disease. Hypokinetic segment of the anterior wall and apical inferior wall regions may suggest a variant of Takotsubo syndrome. Normal LV ejection fraction with features of left-ventricular diastolic dysfunction. Diagnostic RX Recommendation: medical therapy and/or counseling LV EDP: 20 mmHg Ventriculography Ejection Fraction: 55.0 % Left Ventriculography Findings: * The LV gram was performed in the MA projection. The LV cavity appears to be of normal size. There was a moderate area of hypokinesis in the mid anterior wall segment. Mild hypokinesia was noted in the apical inferior region. The overall LV ejection fraction was around 55%. No significant mitral valve prolapse or mitral regurgitation. Pressures Phase:Rest AO : 95 / 75 ( 85 ) @ 2:40:00 PM 108 / 82 ( 95 ) @ 2:45:00 PM 152 / 51 ( 92 ) @ 2:50:00 PM LV : 145 / -7 / 20 @ 2:49:00 PM 154 / 1 / 29 @ 2:50:00 PM Clinical Evaluation EBL: 5mL-10mL Procedural Details Procedure Consent Obtained. Admit Source: In Patient. Pre-Procedure Time Out. Identified patient by full name and date of as verbalized by the patient/guarantor. Does the consent match the physician's order: Yes. Accurate & Complete Informed Consent: Yes. Inpatient/Outpatient History & Physical on Chart: Yes. If H&P is completed, is and addenduem needed: N/A; If yes, is the addendum complete: N/A. Visualize and Verify Site with Patient/Guarantor: N/A. Relevant Radiology Images available: N/A. Pre-op teaching completed and patient verbalized understanding. The risks, benefits, and alternatives of sedation and/or procedure were discussed by physician. The patient agrees to continue. Procedure started. 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 Chest Pain Symptom Assessment: Typical Angina Symptoms. Current diagnosis: NSTEMI. Correct patient, site and procedure confirmed by cath team. PERRLA. Strong, equal hand fire control officer bilaterally. Lungs clear x 5 lobes. IV Site on Arrival: 20 gauge in the right anticubital. IV Fluids: 0.9% NaCl at KVO. 100 mL infused prior to laborer. Pre Procedural Pulses: bilateral dorsalis pedis was 3+. Pre Procedural Pulses: bilateral posterior tibial was 2+. Pre Procedural Pulses: right radial was 2+. Oxygen started at 2liters/min via nasal canula. right groin was prepped with chloroprep then draped in the usual sterile fashion. right radial was prepped with chloroprep then draped in the usual sterile fashion. Physician notified. Baseline sample Acquired. HR: 0 BPM. Baseline sample Acquired. HR: 50 BPM. Physician arrived. Physician scrubbed in. Immediate Pre-Procedure Time Out. Correct Patient: Yes; Correct Procedure: Yes; Correct Site: Yes; Correct Patient Position: Yes; Correct Supplies: Yes; Dried Flammable Prep: Yes; Blood Products Available: N/A;. Lidocaine 1% infiltrated to the right radial. Arterial access obtained. A 5 cymro Martín catheter in over wire. Multiple views taken of left coronary artery. Catheter removed over the exchange wire. A 5 cymro JR4 catheter in over wire. Multiple views taken of right coronary artery. Catheter removed over the exchange wire. A 5 cymro Angled Pig catheter in over wire. EDP Sample taken: LV 145/-8,20; HR: 66 BPM; SpO2: 98%. LV gram performed in MA @ 10 mL/second for a total of 30 mL. EDP Sample taken: LV 154/1,29; HR: 65 BPM; SpO2: 98%. Pullback taken: LV Off; AO Off; Mean: , Peak to Peak: , SEP: ; HR: 65 BPM; SpO2: 99%. A TR Band was successful obtaining hemostatsis at the Right Radial artery insertion site. Post Procedure: Pulses reassessed and unchanged. PERRLA. Strong, equal hand fire control officer bilaterally. No VTE prophylaxis required. Medication's Wasted: Heparin = 1000 u. Medication's Wasted: Lidocaine 1% = 2 mL. Medication's Wasted: Nitro = 49.8 mg. Total IV fluids: 40 mL. Complications: none. Post-op diagnosis: Stress Induced Cardiomyopathy. Estimated blood loss: 5mL-10mL. Responsiveness - Normal response to verbal stimuli; alert and oriented, PERRLA. Airway - Unaffected, no intervention required; spontaneous ventilation. Circulation: W/N/L, pulses unchanged. Nausea/Vomiting: No. Procedure completed. Patient transferred by wheelchair to 1st floor. Vital chart was stopped. Access Site Site: Right Radial artery Sheath Size: 6 Fr Hemostasis Method: TR Band Hemostasis Success: Successful Procedure Medications Start: 2:30 PM Stop: 2:30 PM Medication: Versed Amount: 1 mg Route: I.V. Start: 2:30 PM Stop: 2:30 PM Medication: Fentanyl Amount: 50 mcg Route: I.V. Start: 2:35 PM Stop: 2:35 PM Medication: Versed Amount: 1 mg Route: I.V. Start: 2:36 PM Stop: 2:36 PM Medication: Nitrogylcerin Amount: 200 mcg Route: I.A. Start: 2:36 PM Stop: 2:36 PM Medication: Verapamil Amount: 5 mg Route: I.A. Start: 2:38 PM Stop: 2:38 PM Medication: Heparin Amount: 5000 units Route: I.V. Start: 2:38 PM Stop: 2:38 PM Medication: Fentanyl Amount: 25 mcg Route: I.V. Start: 2:46 PM Stop: 2:46 PM Medication: Fentanyl Amount: 25 mcg Route: I.V. I, the attending physician, have reviewed and verified all procedure medications. Yes, all medications given per verbal order History/Risk Factors Hypertension: Yes Dyslipidemia: No Peripheral Arterial Disease (PAD): No Myocardial Infarction ([place]): No Obesity: Yes Renal Disease: No Tobacco Use: Never Prior Interventions PCI: No CABG: No Valve Surgery: No Report Signatures Finalized by Dr Seamus Tate MD [facility] on 11/02/2022 03:50 PM
[2022-11-01] MEDS: sodium chloride 0.9% 1,000 ML 50 ML IV (12:40)
[2022-11-01] MEDS: diphenhydrAMINE 50 mg Capsule PO (12:40)
--- NOTE | 2022-11-01 12:53 | PM.PN ---
Subjective Subjective: The patient is doing okay. Her white cell count was found to be elevated this morning to 13.5 thousand. The repeat CBC after few hours, white cell count was found to be 12.5 thousand. Patient is remaining afebrile. Medications: Medication Review Details: Current Medications Acetaminophen (Acetaminophen 325 Mg Tablet) 650 mg PO Q6H PRN PRN Reason: Mild/Mod Pain Or Temp >/= 101 Albuterol Sulfate (Albuterol 2.5 Mg/3 Ml Neb) 2.5 mg INHALATION Q4H.RESPIRATORY PRN PRN Reason: wheezing Aspirin (Aspirin 81 Mg Ec Tablet) 81 mg PO DAILY [facility] Last Admin: 11/01/22 07:51 Dose: 81 mg Atorvastatin Calcium (Atorvastatin 40 Mg Tablet) 40 mg PO BEDTIME [facility] Last Admin: 10/31/22 07:54 Dose: 40 mg Enoxaparin Sodium (Enoxaparin 80 Mg/0.8 Ml Syringe) 80 mg SUBCUT Q12H [facility] Last Admin: 11/01/22 03:43 Dose: 80 mg Guaifenesin/Dextromethorphan (Guaifenesin-Dextromethorphan Udc 10 Ml) 5 ml PO Q4H PRN PRN Reason: COUGH Hydralazine HCl (Hydralazine 20 Mg/Ml Inj 1 Ml) 10 mg IVP Q4H PRN PRN Reason: SBP > 170 Sodium Chloride (Sodium Chloride 0.9%) 1,000 mls @ 50 mls/hr IV .Q20H ONE Stop: 11/02/22 08:29 Last Admin: 11/01/22 12:40 Dose: 50 mls/hr Lisinopril (Lisinopril 10 Mg Tablet) 10 mg PO DAILY [facility] Last Admin: 11/01/22 07:51 Dose: 10 mg Morphine Sulfate (Morphine 4 Mg/Ml Sdv 1 Ml) 2 mg IVP Q4H PRN PRN Reason: SEVERE PAIN Nitroglycerin (Nitroglycerin 0.4 Mg Sublingual Tablet) 0.4 mg SUBLINGUAL Q5M PRN PRN Reason: CHEST PAIN Ondansetron HCl (Ondansetron 2 Mg/Ml Sdv 2 Ml) 4 mg IVP Q8H PRN PRN Reason: vomiting, or N/V if npo Pantoprazole Sodium (Pantoprazole Dr 40 Mg Tablet) 40 mg PO DAILY [facility] Last Admin: 11/01/22 07:50 Dose: 40 mg Vitals/I&O/Wt Last Vital Signs Temp 98.8 F 11/01/22 08:00 Pulse 74 11/01/22 08:33 Resp 16 11/01/22 08:33 BP 135/74 11/01/22 08:00 Pulse Ox 100 11/01/22 08:33 O2 Del Method 11/01/22 08:33 10/31/22 11/01/22 11/01/22 22:59 06:59 14:59 Intake Total 480 / 480 0 / 480 0 / 0 Output Total 0 / 0 0 / 0 Balance 480 / 480 0 / 480 0 / 0 Weight last 48 hrs Weight 190 lb Physical Exam Narrative: GENERAL: The patient is alert and oriented times three. Not in any acute distress. HEENT: No significant pallor, icterus or lymphadenopathy.Oral cavity: There are no mucous membrane lesions. NECK: Trachea appears to be central. No masses noted. No JVD or thyromegaly appreciated. RESPIRATORY: Chest is symmetrical. No intercostals muscle retraction or any accessory muscle activation. There is no chest wall tenderness. Breath sounds are heard bilaterally. No rales or rhonchi heard. No evidence of any consolidation. BREASTS: Deferred. HEART: The heart sounds are normal. No S3 or S4. No significant murmurs. No pericardial rub ABDOMEN: No vessel pulsations or distention. No tenderness. No organomegaly appreciated. Bowel sounds are normally heard. : Deferred. RECTAL: Deferred. LYMPHATIC: No lymphadenopathy noted in the neck. EXTREMITIES: No edema or cyanosis. No clubbing. MUSCULOSKELETAL: No acute joint deformities or swelling SKIN: There are no significant rashes or ecchymosis NEUROPSYCHIATRIC: The patient is alert and oriented x3. Appears to be in a good mood. No tremors or rigidity noted. Data 11/01/22 10:38 11/01/22 06:10 Micro: Laboratory Last Values WBC 12.5 10^3/uL (4.0-10.0) H 11/01/22 10:38 RBC 4.09 10^6/uL (4.1-5.3) L 11/01/22 10:38 Hgb 12.0 g/dL (11.5-15.3) 11/01/22 10:38 Hct 37.5 % (37.0-47.0) 11/01/22 10:38 MCV 91.7 fl (81-99) 11/01/22 10:38 MCH 29.3 pg (28.0-34.0) 11/01/22 10:38 MCHC 32.0 g/dL (30.0-36.0) 11/01/22 10:38 RDW 12.8 % (12.1-15.1) 11/01/22 10:38 Plt Count 337 10^3/cmm (130-400) 11/01/22 10:38 MPV 9.6 fL (7.4-10.4) 11/01/22 10:38 Neut % (Auto) 61.7 % 11/01/22 10:38 Lymph % (Auto) 32.7 % 11/01/22 10:38 [place] % (Auto) 4.7 % 11/01/22 10:38 Eos % (Auto) 0.3 % 11/01/22 10:38 Baso % (Auto) 0.2 % 11/01/22 10:38 Neut # (Auto) 7.67 10^3/uL (1.8-7.7) 11/01/22 10:38 Lymph # (Auto) 4.1 10^3/uL (0.8-4.8) 11/01/22 10:38 [place] # (Auto) 0.6 10^3/uL (0.2-0.9) 11/01/22 10:38 Eos # (Auto) 0.0 10^3/uL (0.0-0.8) 11/01/22 10:38 Baso # (Auto) 0.0 10^3/uL (0.0-0.1) 11/01/22 10:38 Nucleated RBC % (auto) 0 % 11/01/22:38 Nucleated RBCs # 0.0 /100WBC 11/01/22 10:38 D-Dimer 0.63 ug/mIFEU (0-0.59) H 10/31/22 00:47 Sodium 135 mmol/L (136-145) L 11/01/22 06:10 Potassium 4.1 mmol/L (3.5-5.1) 11/01/22 06:10 Chloride 102 mmol/L (98-107) 11/01/22 06:10 Carbon Dioxide 22 mmol/L (22-29) 11/01/22 06:10 Anion Gap 15.1 (5-19) 11/01/22 06:10 BUN 16 mg/dL (6-20) 11/01/22 06:10 Creatinine 0.7 mg/dL (0.5-0.9) 11/01/22 06:10 GFR Calculation 87.5 mL/min (90-130) L 11/01/22 06:10 Glucose 102 mg/dL (65-115) 11/01/22 06:10 Estimat Average Glucose 111 11/01/22 06:10 Hemoglobin A1c 5.5 % (4.0-6.0) 11/01/22 06:10 Calculated Osmolality 281 mOsm/kg (285-295) L 11/01/22 06:10 Calcium 8.9 mg/dL (8.5-10.5) 11/01/22 06:10 Total Bilirubin 0.2 mg/dL (0.15-1.2) 11/01/22 06:10 AST 13 U/L (0-32) 11/01/22 06:10 ALT 11 U/L (0-33) 11/01/22 06:10 Alkaline Phosphatase 42 U/L (35-105) 11/01/22 06:10 Troponin T Gen 5 ng/L 36 ng/L (0-10) H 11/01/22 06:10 Troponin T Baseline 27 ng/L (0-10) H 10/31/22 00:47 Troponin T 120 Minute 74.54 ng/L (0-10) H 10/31/22 02:51 Delta Troponin T 47.54 ABS# (0-10) H* 10/31/22 02:51 Troponin T Hi Sens 6Hr 96.66 ng/L (0-10) H 10/31/22 05:42 Troponin T Hi Sens 6Hr Delta 69.66 ng/L (0-12) H* 10/31/22 05:42 NT-Pro-B Natriuret Pep 220 pg/mL (0-125) H 10/31/22 00:47 Total Protein 6.5 g/dL (6.6-8.7) L 11/01/22 06:10 Albumin 3.7 g/dL (3.5-5.2) 11/01/22 06:10 Globulin 2.8 g/dL (1.3-4.6) 11/01/22 06:10 Triglycerides 132 mg/dL (0-150) 10/31/22 00:47 Cholesterol 196 mg/dL (0-200) 10/31/22 00:47 LDL Cholesterol, Calc 122 mg/dL (50-129) 10/31/22 00:47 HDL Cholesterol 48 mg/dL (60-100) L 10/31/22 00:47 LDL/HDL Ratio 2.54 RATIO (0.00-3.22) 10/31/22 00:47 Cholesterol/HDL Ratio 4.08 mg/dL (0.0-4.40) 10/31/22 00:47 Lipase 29 U/L (13-60) 10/31/22 00:47 TSH 3.17 uIU/mL (0.27-4.20) 11/01/22 06:10 Urine Color Colorless (Yellow) 10/31/22 05:51 Urine Appearance Clear (CLEAR) 10/31/22 05:51 Urine pH 8 (5-7) H 10/31/22 05:51 Ur Specific [place] 1.010 (1.005-1.030) 10/31/22 05:51 Urine Protein Neg (Negative) 10/31/22 05:51 Urine Glucose (UA) Norm (Normal) 10/31/22 05:51 Urine Ketones Negative (Negative) 10/31/22 05:51 Urine Blood Neg (Negative) 10/31/22 05:51 Urine Nitrate Negative (Negative) 10/31/22 05:51 Urine Bilirubin Neg (Negative) 10/31/22 05:51 Prot Sulfosalicylic Acd Negative (Negative) 10/31/22 05:51 Urine Urobilinogen Norm mg/dL (Negative) 10/31/22 05:51 Ur Leukocyte Esterase Negative (Negative) 10/31/22 05:51 Influenza Type A Ag negative (Negative) 10/31/22 00:54 Influenza Type B Ag negative (Negative) 10/31/22 00:54 SARS-CoV-2 Ag (Rapid) negative (Negative) 10/31/22 00:54 Other data: ?Normal LV size ejection fraction of 50 to 55%.? Mild hypokinesia ?of the inferolateral wall segment.Grade I/IV diastolic ?dysfunction (abnormal relaxation filling pattern), normal to ?mildly elevated filling pressures. ?Trace mitral valve regurgitation. ?There is no pericardial effusion. ?There are no intracardiac masses. ?No similar previous studies are available for comparison A&P Assessment and plan (1) Non-ST elevation [place] (NSTEMI): In order to further evaluate the patient's coronary status, she requires a cardiac catheterization. The risk and benefits were discussed with the patient. The risk of bleeding, hematoma, vascular injury, myocardial infarction, myocardial perforation, malignant cardiac arrhythmias ,CVA, renal failure and other concomitant complications were explained in detail. Patient understood this well and consented to proceed. We may go ahead and do schedule the procedure as early as possible. (2) Benign essential hypertension with target blood pressure below 140/90: Blood pressure seems to be under control at this time. (3) Bronchitis: Treatment as per the primary attending. Symptoms are improving (4) History of pulmonary embolism: Patient had IVC filter placement and DVT of the right lower extremity. She has not had any recurrence since 2016. She was on oral anticoagulation for 6 months or so and then was discontinued. Currently she seems to have no specific symptoms. Plan Based on the results of the above tests and the patient's clinical progress, further recommendations will be made. Attestations Medical Necessity Statement*: Patient requires continued hospital stay for close monitoring and further management Coding Level of Care Code 66116 Diagnoses Non-ST elevation [place] (NSTEMI) I21.4 Benign essential hypertension with target blood pressure below 140/90 I10 Bronchitis J40 History of pulmonary embolism Z86.711
--- NOTE | 2022-11-01 13:00 | W.PM.OPSUD ---
Surgery/Procedure H&P Update DATE OF PROCEDURE: November 01, 2022 DATE H&P PERFORMED: 10/31/22 H&P UPDATE INFORMATION: I have reviewed H&P completed within last 30 days, I have examined patient prior to procedure and No changes to prior documentation PREOP DIAGNOSIS: ASHD PRIMARY INDICATION FOR PROCEDURE: NSTEMI PLANNED PROCEDURE: Operation Date: 11/01/22 13:30 Proposed Procedures p Cardiac Catheterization(Left) - Seamus Tate MD PATIENT REASSESSED PRIOR TO SEDATION, WITH NO CHANGE NOTED: Yes PHYSICAL EXAM: alert, oriented x 3, clear to auscultation bilaterally and regular rate & rhythm AIRWAY EVAL/ANESTHESIA PLAN: normal airway, see other exam findings, ASA III, Monitored Anesthesia, Local Anesthesia, Risks, benefits & alternatives of sedation and/or procedure discussed and Patient agrees to continue as planned
--- NOTE | 2022-11-01 15:26 | PC.NURSE ---
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 Patient has TR band on right radial. No hematoma present, no oozing. Report received from JOSUE Ramirez. Patient educated on activity restriction will remove TR band per protocol.
[2022-11-01] MEDS: atorvastatin 40 mg Tablet PO (20:23)
[2022-11-01] MEDS: amlodipine 10 mg Tablet PO (20:23)
[2022-11-02] VITALS: BP 141/71; PULSE 54; RESP 18; TEMP 36.9; O2SAT 97
[2022-11-02 04:00] VITALS: BP 119/69; PULSE 69; RESP 19; TEMP 37.1; O2SAT 97
--- NOTE | 2022-11-02 07:24 | PM.DCS ---
Discharge Providers Date of Admission: 10/31/22 03:34 Date of Discharge: November 01, 2022 Attending Provider at Admission: Kristina Dutta MD Attending Provider at Discharge: Tristan Marin MD Primary Care Provider: Marisa Barber DO Diagnoses at Discharge Discharge Diagnosis (1) Non-ST elevation [place] (NSTEMI): Status: Acute (2) Benign essential hypertension with target blood pressure below 140/90: Status: Acute (3) Bronchitis: Status: Acute (4) History of pulmonary embolism: Status: Acute Reason for Visit Reason for Visit: sob,cough,chest pain Hospital Course Hospital Course 52-year-old female who was admitted for management evaluation of typical angina, Dr. Tate was consulted who recommended coronary angiogram, patient is suffering from tracheobronchitis with hoarseness of voice for which she required antibiotics, she remained afebrile however leukocytosis was noticed during hospitalization, she did not complain of any chest pain during hospitalization, coronary angiogram report to be finalized by Dr. Tate however no stent was placed, incidental finding of hydronephrosis of kidneys however there is no signs of obstruction, there is a renal cyst, I will give her outpatient urology referral, she is getting bradycardic we will request overnight pulse ox to rule out sleep apnea. Avoid beta-ian. She is getting hypertensive for which I will optimize her antihypertensive regimen with lisinopril, chlorthalidone, amlodipine Echo did not show any wall motion abnormality, preserved ejection fraction, grade 1 diastolic function Normal TSH CTa rule out PE Bradycardia improved, she has nocturnal hypoxemia she will need sleep study outpatient, avoid beta-ian for now Physical Exam Narrative: Patient is awake and alert GCS 15 S1, S2 sinus bradycardia Hemodynamically stable hypertension Discharge Data Studies Completed and Pending Completed Studies During Hospitalization Category Date Time Status CT abdomen pelvis wo con [id number] Routine Cat Scan 11/01/22 08:10 Completed CTA chest [CT angio chest PE protcl [id number]] Stat Cat Scan 10/31/22 01:28 Completed XR chest 1V portable [id number] Stat Exams 10/31/22 00:46 Completed CV. echo complete* [id number] Routine Ultrasound 10/31/22 07:09 Completed Pending at discharge Category Date Time Status THEORETICAL PHYSICIST request for service Routine Exams 11/01/22 12:09 Taken BMP [Basic Metabolic Panel] AM LABS Lab 11/02/22 04:00 Ordered Radiology Impressions Chest X-Ray 10/31/22 00:46 IMPRESSION: No acute findings. Chest CTA 10/31/22 01:28 IMPRESSION: 1. Masslike enlargement of the left kidney, question pyelonephritis, hydronephrosis, or mass. 2. No pulmonary emboli. 3. Mild pulmonary artery enlargement. Mild left cardiac ventricular enlargement. COMMENTS: Consistent with the [employer]'s Incidental Findings Committee white paper (J [employer] Joesph Radiol 2018): Any incidental renal lesion less than 1 cm or classified as too small to characterize, or any incidental cystic renal lesion characterized as simple-appearing, is likely benign. No follow-up imaging is recommended for these lesions per consensus recommendations based on imaging criteria. Abdomen/Pelvis CT 11/01/22 08:10 IMPRESSION: 1. Bilateral renal cortical atrophy with dilatation of the renal collecting system bilaterally. Moderate LEFT and mild RIGHT chronic appearing hydronephrosis with superimposed peripelvic renal cysts. 2. No evidence of obstructing renal or ureteral calculi. Both ureters are normal. Evaluation is somewhat limited without contrast. 3. RIGHT ovarian low-attenuation lesion 2.9 x 2.0 cm likely ovarian cyst. 4. No other acute findings. Laboratory Results WBC 12.5 10^3/uL (4.0-10.0) H 11/01/22 10:38 RBC 4.09 10^6/uL (4.1-5.3) L 11/01/22 10:38 Hgb 12.0 g/dL (11.5-15.3) 11/01/22 10:38 Hct 37.5 % (37.0-47.0) 11/01/22 10:38 MCV 91.7 fl (81-99) 11/01/22 10:38 MCH 29.3 pg (28.0-34.0) 11/01/22 10:38 MCHC 32.0 g/dL (30.0-36.0) 11/01/22 10:38 RDW 12.8 % (12.1-15.1) 11/01/22 10:38 Plt Count 337 10^3/cmm (130-400) 11/01/22 10:38 MPV 9.6 fL (7.4-10.4) 11/01/22 10:38 Neut % (Auto) 61.7 % 11/01/22 10:38 Lymph % (Auto) 32.7 % 11/01/22 10:38 [place] % (Auto) 4.7 % 11/01/22 10:38 Eos % (Auto) 0.3 % 11/01/22 10:38 Baso % (Auto) 0.2 % 11/01/22 10:38 Neut # (Auto) 7.67 10^3/uL (1.8-7.7) 11/01/22 10:38 Lymph # (Auto) 4.1 10^3/uL (0.8-4.8) 11/01/22 10:38 [place] # (Auto) 0.6 10^3/uL (0.2-0.9) 11/01/22 10:38 Eos # (Auto) 0.0 10^3/uL (0.0-0.8) 11/01/22 10:38 Baso # (Auto) 0.0 10^3/uL (0.0-0.1) 11/01/22 10:38 Nucleated RBC % (auto) 0 % 11/01/22 10:38 Nucleated RBCs # 0.0 /100WBC 11/01/22 10:38 D-Dimer 0.63 ug/mIFEU (0-0.59) H 10/31/22 00:47 Sodium 135 mmol/L (136-145) L 11/01/22 06:10 Potassium 4.1 mmol/L (3.5-5.1) 11/01/22 06:10 Chloride 102 mmol/L (98-107) 11/01/22 06:10 Carbon Dioxide 22 mmol/L (22-29) 11/01/22 06:10 Anion Gap 15.1 (5-19) 11/01/22 06:10 BUN 16 mg/dL (6-20) 11/01/22 06:10 Creatinine 0.7 mg/dL (0.5-0.9) 11/01/22 06:10 GFR Calculation 87.5 mL/min (90-130) L 11/01/22 06:10 Glucose 102 mg/dL (65-115) 11/01/22 06:10 Estimat Average Glucose 111 11/01/22 06:10 Hemoglobin A1c 5.5 % (4.0-6.0) 11/01/22 06:10 Calculated Osmolality 281 mOsm/kg (285-295) L 11/01/22 06:10 Calcium 8.9 mg/dL (8.5-10.5) 11/01/22 06:10 Total Bilirubin 0.2 mg/dL (0.15-1.2) 11/01/22 06:10 AST 13 U/L (0-32) 11/01/22 06:10 ALT 11 U/L (0-33) 11/01/22 06:10 Alkaline Phosphatase 42 U/L (35-105) 11/01/22 06:10 Troponin T Gen 5 ng/L 36 ng/L (0-10) H 11/01/22 06:10 Troponin T Baseline 27 ng/L (0-10) H 10/31/22 00:47 Troponin T 120 Minute 74.54 ng/L (0-10) H 10/31/22 02:51 Delta Troponin T 47.54 ABS# (0-10) H* 10/31/22 02:51 Troponin T Hi Sens 6Hr 96.66 ng/L (0-10) H 10/31/22 05:42 Troponin T Hi Sens 6Hr Delta 69.66 ng/L (0-12) H* 10/31/22 05:42 NT-Pro-B Natriuret Pep 220 pg/mL (0-125) H 10/31/22 00:47 Total Protein 6.5 g/dL (6.6-8.7) L 11/01/22 06:10 Albumin 3.7 g/dL (3.5-5.2) 11/01/22 06:10 Globulin 2.8 g/dL (1.3-4.6) 11/01/22 06:10 Triglycerides 132 mg/dL (0-150) 10/31/22 00:47 Cholesterol 196 mg/dL (0-200) 10/31/22 00:47 LDL Cholesterol, Calc 122 mg/dL (50-129) 10/31/22 00:47 HDL Cholesterol 48 mg/dL (60-100) L 10/31/22 00:47 LDL/HDL Ratio 2.54 RATIO (0.00-3.22) 10/31/22 00:47 Cholesterol/HDL Ratio 4.08 mg/dL (0.0-4.40) 10/31/22 00:47 Lipase 29 U/L (13-60) 10/31/22 00:47 TSH 3.17 uIU/mL (0.27-4.20) 11/01/22 06:10 Urine Color Colorless (Yellow) 10/31/22 05:51 Urine Appearance Clear (CLEAR) 10/31/22 05:51 Urine pH 8 (5-7) H 10/31/22 05:51 Ur Specific [place] 1.010 (1.005-1.030) 10/31/22 05:51 Urine Protein Neg (Negative) 10/31/22 05:51 Urine Glucose (UA) Norm (Normal) 10/31/22 05:51 Urine Ketones Negative (Negative) 10/31/22 05:51 Urine Blood Neg (Negative) 10/31/22 05:51 Urine Nitrate Negative (Negative) 10/31/22 05:51 Urine Bilirubin Neg (Negative) 10/31/22 05:51 Prot Sulfosalicylic Acd Negative (Negative) 10/31/22 05:51 Urine Urobilinogen Norm mg/dL (Negative) 10/31/22 05:51 Ur Leukocyte Esterase Negative (Negative) 10/31/22 05:51 Influenza Type A Ag negative (Negative) 10/31/22 00:54 Influenza Type B Ag negative (Negative) 10/31/22 00:54 SARS-CoV-2 Ag (Rapid) negative (Negative) 10/31/22 00:54 Vitals Last Vital Signs Temp 98.8 F 11/01/22 08:00 Pulse 62 11/01/22 19:01 Resp 23 H 11/01/22 19:01 BP 165/101 11/01/22 19:01 Pulse Ox 97 11/01/22 19:01 O2 Del Method 11/01/22 12:00 Discharge Plan Discharge Patient Disposition: Home Condition: Stable Prescriptions: New omeprazole 20 mg capsule,delayed release(DR/EC) 20 mg PO DAILY 60 Days Qty: 60 0RF Continued aspirin 81 mg Tablet,Delayed Release (Dr/Ec) 81 mg PO QAM Qty: 30 0RF amlodipine 10 mg tablet 10 mg PO QAM Qty: 30 0RF losartan-hydrochlorothiazide 50-12.5 mg tablet 1 tab PO QAM Qty: 60 0RF Discontinued [place]-Bertrand Plus Cold-Flu 12.5-10-20-650 mg Powder In Packet 1 ea PO BID PRN (Reason: Cold Symptoms) Other Ambulatory Orders: Sleep Study/Titration (Routine) Timeframe: 1 Week Facility: [facility] - Location: [facility] Ordered By: Tristan Marin Referrals: Vish Yap MD [Physician] - 1 month Marisa Barber DO [Primary Care Provider] - Patient Instructions: Opioid Safety Discharge Attestations Time Spent in Discharge Care*: less than 30 min Quality Metrics Clinical Quality Measures [ No reported AMI, CVA or VTE this stay] Coding Level of Care Code Acute Code for Chg Fwd Diagnoses Non-ST elevation IL (NSTEMI) I21.4 Benign essential hypertension with target blood pressure below 140/90 I10 Bronchitis J40 History of pulmonary embolism Z86.367
[2022-11-02 07:38] VITALS: BP 126/64; PULSE 58; RESP 18; TEMP 37.3; O2SAT 93
--- NOTE | 2022-11-02 08:46 | PC.NURSE ---
Pt discharged home with boyfriend. IV removed with cathlon intact. D/c instructions given. Voiced understanding. Belongings sent home with pt.
== END 2022-11-02 09:00 | disposition home or self-care (01) | DRG 287 ==
LOC: ER 04:46 → ER IP 06:12 → CSU 15:10
PROVIDERS: Internal Medicine Cardiovascular Disease; Nurse Practitioner Family; Admitting Provider Student in an Organized Health Care Education/Training Program; Emergency Provider Emergency Medicine; PCP Family Medicine; Visit Provider Internal Medicine
PROC: 4A023N7 Measurement of Cardiac Sampling and Pressure, Left Heart, Percutaneous Approach (ICD-10-PCS; principal; 2022-11-01 13:30)
DX: I51.81 Takotsubo syndrome (principal); Q32.4 Other congenital malformations of bronchus; N13.30 Unspecified hydronephrosis; I10 Essential (primary) hypertension; Z86.711 Personal history of pulmonary embolism; N28.1 Cyst of kidney, acquired; R00.1 Bradycardia, unspecified; Z79.82 Long term (current) use of aspirin; Z86.718 Personal history of other venous thrombosis and embolism; Z95.828 Presence of other vascular implants and grafts
CPT/HCPCS: 36415; 71045; 71275; 74176; 80053; 80061; 81003; 83036; 83690; 83880; 84443; 84484; 85025; 85378; 87426; 87804; 93005; 93306; 93458; 94640; 94762; 96372; 96374; 96376; 99152; 99153; 99285; A9270; C1769; C1887; C1894; J1100; J1644; J1650; J2250; J3010; J3490; J7030; Q0163; Q9967

== ENCOUNTER → 2022-12-11 15:12 | Outpatient (BNVA) | payer BC, MEDICAID, SELFPAY | PROVIDERS: PCP Family Medicine; Visit Provider Urology | DX: G47.34 Idiopathic sleep related nonobstructive alveolar hypoventilation (principal); N28.1 Cyst of kidney, acquired; N26.1 Atrophy of kidney (terminal) | CPT/HCPCS: 81003 ==

== ENCOUNTER 2023-01-01 12:59 | Outpatient (CLI) | payer BC, MEDICAID, SELFPAY ==
--- NOTE | 2023-01-01 13:17 | XR_ITS ---
WS: [id number] IVP, 01/01/2023 Clinical Data: renal atrophy Comparison: CT abdomen and pelvis, 01/01/2023 Findings: The patient has a linear foreign body overlying the left side of the L3 vertebral body which may be a strut from an inferior vena caval filter. After the intravenous injection of 50 mL of 240 mg/mL Omni paque 240 there is prompt bilateral excretion from the kidneys. The renal pyelocalyceal systems show dilatation and blunting. However the ureters are not dilated. The blunting of the calyces may be from chronic renal disease and the presence of peripelvic cysts. The bladder fills normally with contrast . The post voiding film is unremarkable. XR/XR IVP infus/drip/bolus* [id number] Impression: 1. Probable renal cortical atrophy with calcaneal blunting and peripelvic cyst s. 2. Negative for ureteral dilatation. 3. Negative bladder. 4. Recommend CT scan of the abdomen and pelvis with IV contrast for more detail ed evaluation of the renal system.
[2023-01-01 13:56] LABS: Blood Urea Nitrogen 10 mg/dL (6-20); Glomerular Filtration Rate 65.5 mL/min (90-130)
== END 2023-01-01 13:00 | disposition home or self-care (01) ==
LOC: RAD 13:05
PROVIDERS: PCP Family Medicine; Visit Provider Urology
DX: N26.1 Atrophy of kidney (terminal) (principal)
CPT/HCPCS: 74410; 81003; 82565; 84520

== ENCOUNTER 2023-11-20 08:04 | Outpatient (CLI) | payer BC, MEDICAID, SELFPAY ==
--- NOTE | 2023-11-20 08:14 | XR_ITS ---
WS: [id number] Exam: XR hip RT 2-3V wo/w pel* [id number] Date/Time of Exam: 11/20/2023 8:27 AM Reason For Exam: HIP JOINT PAIN No fracture or dislocation. The joint compartment is preserved. Normal soft tissues. IMPRESSION: 1. Negative RIGHT hip.
--- NOTE | 2023-11-20 08:15 | XR_ITS ---
WS: [id number] Exam: XR lumbar spine 6V w f/e [id number] Date/Time of Exam: 11/20/2023 8:27 AM Reason For Exam: BACK PAIN, LOW No acute fracture or dislocation. Degenerative vacuum disc at L5-S1. No flexion or extension instabil ity. Facet DJD at L4-5 and L5-S1. No flexion or extension instability identified. Increased lumbar lo rdosis. Mild levoscoliosis. A linear metallic density identified at the level of the L3 apparently re presents a known foreign body in the abdomen. IMPRESSION: 1. No acute fracture or malalignment. No instability identified. 2. Degenerative changes. Increased lordosis and mild levoscoliosis.
== END 2023-11-20 08:05 | disposition home or self-care (01) ==
LOC: RAD 08:10
PROVIDERS: PCP Family Medicine; Visit Provider Family Medicine
DX: M47.896 Other spondylosis, lumbar region (principal); M54.50 Low back pain, unspecified; M25.551 Pain in right hip
CPT/HCPCS: 72114; 73502

== ENCOUNTER 2023-12-01 07:53 | Outpatient (CLI) | payer BC, MEDICAID, SELFPAY ==
--- NOTE | 2023-12-01 08:06 | MM_ITS ---
WS: [id number] SCREENING DIGITAL TOMOSYNTHESIS MAMMOGRAM WITH CAD HISTORY: SCREENING COMPARISON: 04/10/2022 Bilateral CC and MLO with tomosynthesis views submitted. Synthetic mammography reviewed. Computer aid ed detection analyzed. Breast composition: There are scattered areas of fibroglandular density. No suspicious masses, microc alcifications or architectural distortion. IMPRESSION: MM/[place] [id number] BI-RADS: 1-Negative FOLLOW UP: 1 Year Follow-up
== END 2023-12-01 07:54 | disposition home or self-care (01) ==
LOC: RAD 07:53
PROVIDERS: PCP Family Medicine; Visit Provider Family Medicine
DX: Z12.31 Encounter for screening mammogram for malignant neoplasm of breast (principal)
CPT/HCPCS: 77063; 77067

== ENCOUNTER 2024-04-14 05:48 | Day surgery (SDC) | payer BC, MEDICAID, SELFPAY ==
--- NOTE | 2024-04-14 05:57 | PM.HP ---
Providers/Chief Complaint Primary Care Provider: Marisa Barber DO Chief Complaint: Z12.11 History of Present Illness Natacha Reyez is a 53 year old female Review of Systems General: Reports: 10 or more systems reviewed and unremarkable except in HPI and below Medications/Allergies Home Medications Medication Instructions Recorded Confirmed Last Taken Type amlodipine 10 mg tablet 10 mg PO QAM #30 tabs 11/01/22 04/12/24 04/12/24 Rx aspirin 81 mg tablet,delayed 81 mg PO QAM #30 tabs 11/01/22 04/12/24 04/12/24 Rx release losartan 50 mg-hydrochlorothiazide 1 tab PO QAM #60 tabs 11/01/22 04/12/24 04/12/24 Rx 12.5 mg tablet Allergies Allergy/AdvReac Type Severity Reaction Status Date / Time clindamycin Allergy Severe ALGY-Bliste Verified 04/12/24 09:48 r PFSH Acute PFSH: Medical History Bilateral renal atrophy History of pulmonary embolism Benign essential hypertension with target blood pressure below 140/90 Bronchitis Non-ST elevation [place] (NSTEMI) Family History Mother No problems noted. Father , AT AGE 78 Cancer ESOPHAGEAL Social History Smoking and tobacco/nicotine status: never used tobacco/nicotine Alcohol intake: current Alcohol intake frequency: holidays/special occasions only Marital status: Single Current occupational status: employed [employer] Assessment and plan (1) Colon cancer screening: Plan Colonoscopy Attestations Medical Necessity Statement*: Home Coding Level of Care Code Acute Code for Chg Fwd Diagnoses Colon cancer screening Z12.11
[2024-04-14 06:03] VITALS: BP 156/91; PULSE 76; RESP 16; TEMP 36.3; O2SAT 97
[2024-04-14 06:05] VITALS: BMI 35.9
[2024-04-14 06:06] LABS: OR HCG Qualitative Urine Negative (Negative)
[2024-04-14] MEDS: sodium chloride 0.9% 1,000 ML 30 ML IV (06:14)
--- NOTE | 2024-04-14 06:58 | ANES.PREANE2 ---
Pre-Anesthetic Assessment Height/Weight: Height 5 ft 1 in Weight 190 lb Temp Pulse Resp BP Pulse Ox O2 Del Method 97.4 F L 76 16 156/91 97 Room Air 04/14/24 06:03 04/14/24 06:03 04/14/24 06:03 04/14/24 06:03 04/14/24 06:03 04/14/24 06:03 Operation Date: 04/14/24 07:00 Proposed Procedures p Colonoscopy [id number], G0121, Z12.11(Not Applicable) - Jerzy Mckinney DO Last intake: Intake Last Liquid Date 04/13/24 Last Liquid Time 21:00 Last Solid Date 04/12/24 Last Solid Time 18:00 Social No alcohol and No tobacco Exam alert, oriented x 3, clear to auscultation bilaterally and regular rate & rhythm Airway Submandibular: within normal limits Cervical ROM: within normal limits Mallampati: Class II Dentition: full Pulmonary None reported Anesthetic Plan ASA status: 2 Anesthesia: MAC Other: No prior issues with anesthesia Patient hospitalized in October for non-ST elevated CA, thought to be from uncontrolled hypertension Since that time patient has followed up and is on amlodipine and losartan hydrochlorothiazide Bilateral renal atrophy noted, kidney function stable METs greater than 4 Patient completed prep Plan for MAC anesthesia Medications/Allergies Home Medications Medication Instructions Recorded Confirmed Last Taken Type amlodipine 10 mg tablet 10 mg PO QAM #30 tabs 11/01/22 04/14/24 04/14/24 Rx aspirin 81 mg tablet,delayed 81 mg PO QAM #30 tabs 11/01/22 04/14/24 04/13/24 Rx release losartan 50 mg-hydrochlorothiazide 1 tab PO QAM #60 tabs 11/01/22 04/14/24 04/13/24 Rx 12.5 mg tablet Allergies Allergy/AdvReac Type Severity Reaction Status Date / Time clindamycin Allergy Severe ALGY-Bliste Verified 04/12/24 09:48 r Current Medications Generic Name Dose Route Start Last Admin Trade Name Freq PRN Reason Stop Dose Admin Sodium Chloride 1,000 mls @ 30 mls/hr 04/14/24 06:00 04/14/24 06:14 Sodium Chloride 0.9% IV 04/15/24 05:59 30 mls/hr .Q24H CHARLIE Administration PFSH Anesthesia Medical History Bilateral renal atrophy History of pulmonary embolism Benign essential hypertension with target blood pressure below 140/90 Bronchitis Non-ST elevation [place] (NSTEMI) Family History Mother No problems noted. Father , AT AGE 78 Cancer ESOPHAGEAL Social History Smoking and tobacco/nicotine status: never used tobacco/nicotine Alcohol intake: current Alcohol intake frequency: holidays/special occasions only Marital status: Single Current occupational status: employed Data Anesthesia Cardiac Studies: Echocardiogram 10/31/22
[2024-04-14 07:19] VITALS: BP 102/68; PULSE 72; RESP 18; TEMP 36.8; O2SAT 95
[2024-04-14 07:30] VITALS: BP 134/74; PULSE 64; RESP 18; O2SAT 95
--- NOTE | 2024-04-14 13:07 | ANE.PACU2 ---
Inpatient post-anesthesia follow up: Airway intact: Yes Vital signs: Temperature 98.2 F Pulse Rate 64 Respiratory Rate 18 Blood Pressure 134/74 Pulse Oximetry 95 Oxygen Delivery Me thod Room Air Oxygen Flow Rate Fraction of Inspir ed Oxygen Hydration adequate: Yes Nausea and vomiting: No Pain level: 1 Mental status: Baseline
== END 2024-04-14 07:55 | disposition home or self-care (01) ==
PROVIDERS: Anesthesiology; PCP Family Medicine; Visit Provider Surgery
PROC: 0DJD8ZZ Inspection of Lower Intestinal Tract, Via Natural or Artificial Opening Endoscopic (ICD-10-PCS; CPT 45378; principal; 2024-04-14 07:00)
DX: Z12.11 Encounter for screening for malignant neoplasm of colon (principal); Z79.82 Long term (current) use of aspirin; Z86.711 Personal history of pulmonary embolism; I25.2 Old myocardial infarction; I10 Essential (primary) hypertension
CPT/HCPCS: 45378; 81025; J2704; J3490; J7030

== ENCOUNTER 2025-02-09 08:58 | Outpatient (CLI) | payer MEDICAID, SELFPAY ==
--- NOTE | 2025-02-09 09:06 | MM_ITS ---
WS: [id number] BILATERAL SCREENING DIGITAL TOMOSYNTHESIS MAMMOGRAM WITH CAD HISTORY: SCREENING COMPARISON: 12/01/2023, 04/10/2022 Bilateral CC and MLO views with tomosynthesis and synthetic mammography submitted. Computer aided detection analyzed. Breast composition: There are scattered areas of fibroglandular density. No suspicious masses, microcalcifications or architectural distortion. MM/MM scr BI tomosynthesis [id number] IMPRESSION: BI-RADS: 1 - Negative. FOLLOW UP: 1 Year Follow-up
== END 2025-02-09 08:59 | disposition home or self-care (01) ==
PROVIDERS: PCP Family Medicine; Visit Provider Family Medicine
DX: Z12.31 Encounter for screening mammogram for malignant neoplasm of breast (principal)
CPT/HCPCS: 77063; 77067